=== PATIENT | female | born 1975 | race Caucasian/White ===

== ENCOUNTER 2018-05-31 08:26 | Inpatient (IN) | payer OTHER, MEDICAID ==
[~2018-05-31] VITALS: Ht 149.9 cm; Wt 112.5 kg
[2018-05-31 08:30] VITALS: Ht 149.9 cm; Wt 112.5 kg
[2018-05-31] MEDS ORDERED: VITAMIN D32000 I2 PO (08:39)
[2018-05-31] MEDS ORDERED: ENSKYCE1 TAB PO (08:39)
[2018-05-31] MEDS ORDERED: SYNTHROID0.125 MG PO (08:39)
[2018-05-31] MEDS ORDERED: MULTIVITAMIN1 SGL PO (08:40)
[2018-05-31] MEDS ORDERED: FISH OIL1000 MG PO (08:40)
[2018-05-31] MEDS ORDERED: TYLENOL325 M1 PO (08:43)
[2018-05-31] MEDS ORDERED: IMODIUM A-D2 M3 PO (08:44)
[2018-05-31] MEDS ORDERED: MP PO (08:44)
[2018-05-31] MEDS ORDERED: MOM PO (08:45)
[2018-05-31] MEDS ORDERED: ALBUTEROL SULFAT3 ML HHN (08:47)
[2018-05-31 08:58] LABS: BASOPHIL % 0.8 % (0-2); PLATELET COUNT 230 x10^3mcL (130-400)
[2018-05-31 09:24] LABS: CALCIUM 8.3 mg/dL (8.5-10.1); CARBON DIOXIDE 29.8 mmol/L (21-32); CHLORIDE SERUM 104 mmol/L (98-107); CREATININE SERUM 0.8 mg/dL (0.6-1.0); GFR1 > 60 mL/min; GLUCOSE SERUM 116 mg/dL (74-106); POTASSIUM SERUM 3.9 mmol/L (3.5-5.1); SODIUM SERUM 140 mmol/L (136-145)
[2018-05-31 09:25] LABS: CK-MB 0.9 ng/mL (0-3.6)
[2018-05-31 09:26] LABS: ALKALINE PHOSPHATASE 108 U/L (46-116); ALT/SGPT 29 U/L (14-59); AST/SGOT 17 U/L (15-37); BILIRUBIN TOTAL 0.3 mg/dL (0.20-1.00); C REACTIVE PROTEIN 4.7 mg/dL (<=0.9); TOTAL PROTEIN, SERUM 7.9 g/dL (6.4-8.2)
[2018-05-31 09:27] LABS: ALBUMIN 2.6 g/dL (3.4-5.0)
[2018-05-31 09:28] LABS: FREE T4 1.12 ng/dL (0.76-1.46); FREE THYROXINE INDEX 3.7 ug/dL (1.4-4.5); T4(THYROXINE) 11.6 ug/dL (4.7-13.3)
[2018-05-31 10:25] LABS: T3 TOTAL 1.15 ng/mL
[2018-05-31 11:09] LABS: ERYTHROCYTE SED RATE 70 mm/hr (0-20)
[2018-05-31 11:47] LABS: CHOLESTEROL/HDL RATIO 3.5; MAGNESIUM 1.8 mg/dL (1.8-2.4); PHOSPHOROUS 3.8 mg/dL (2.5-4.9)
[2018-05-31 13:15] LABS: UA SPECIFIC GRAVITY >=1.030 (1.005-1.035); microscopic required? YES; urine erythrocyte NEGATIVE (NEGATIVE)
[2018-05-31 15:12] VITALS: BP 117/60
[2018-05-31 16:19] VITALS: BP 125/60
[2018-05-31 16:23] VITALS: BP 125/60
[2018-05-31 19:30] VITALS: BP 123/74
[2018-05-31 23:09] VITALS: BP 103/57
[2018-06-01 03:10] VITALS: BP 100/43
[2018-06-01 05:03] LABS: BASOPHIL % 0.7 % (0-2); PLATELET COUNT 209 x10^3mcL (130-400); RED CELL DISTRIBUTION WIDTH 15.5 % (11.5-14.5)
[2018-06-01 05:19] LABS: CALCIUM 8.4 mg/dL (8.5-10.1); CARBON DIOXIDE 29.4 mmol/L (21-32); CHLORIDE SERUM 105 mmol/L (98-107); CREATININE SERUM 0.8 mg/dL (0.6-1.0); GFR1 > 60 mL/min; GLUCOSE SERUM 163 mg/dL (74-106); PHOSPHOROUS 2.7 mg/dL (2.5-4.9); POTASSIUM SERUM 4.2 mmol/L (3.5-5.1); SODIUM SERUM 141 mmol/L (136-145)
[2018-06-01 22:00] VITALS: BP 101/54
[2018-06-02 05:57] LABS: PLATELET COUNT 209 x10^3mcL (130-400)
[2018-06-02 05:58] VITALS: BP 122/71
[2018-06-02 06:35] LABS: RED CELL DISTRIBUTION WIDTH 15.9 % (11.5-14.5)
[2018-06-02 06:39] LABS: CALCIUM 8.8 mg/dL (8.5-10.1); CARBON DIOXIDE 30.9 mmol/L (21-32); CHLORIDE SERUM 104 mmol/L (98-107); CREATININE SERUM 0.8 mg/dL (0.6-1.0); GFR1 > 60 mL/min; GLUCOSE SERUM 136 mg/dL (74-106); MAGNESIUM 2.2 mg/dL (1.8-2.4); PHOSPHOROUS 3.4 mg/dL (2.5-4.9); POTASSIUM SERUM 4.7 mmol/L (3.5-5.1); SODIUM SERUM 141 mmol/L (136-145)
[2018-06-02 08:49] VITALS: BP 96/60
[2018-06-02 12:31] VITALS: BP 92/42
[2018-06-02 13:12] LABS: ATYPICAL LYMPH 2 %; BAND NEUTROPHIL 4 % (0-10); BASOPHIL 0 % (0-2); MONOCYTE 2 % (0-7); SEGMENTED NEUTROPHILS 91 % (37-75)
[2018-06-02 13:13] LABS: PLATELET MORPHOLOGY PLATELETS DECREASED; rbc morphology (normal/abnorm) ABNORMAL (NORMAL)
[2018-06-02 18:07] VITALS: BP 124/67
[2018-06-02 19:48] VITALS: BP 126/61
[2018-06-03 05:26] VITALS: BP 101/47
[2018-06-03 07:26] LABS: BASOPHIL % 0.1 % (0-2); PLATELET COUNT 204 x10^3mcL (130-400)
[2018-06-03 07:49] LABS: CALCIUM 8.8 mg/dL (8.5-10.1); CARBON DIOXIDE 28.5 mmol/L (21-32); CHLORIDE SERUM 100 mmol/L (98-107); CREATININE SERUM 0.8 mg/dL (0.6-1.0); GFR1 > 60 mL/min; GLUCOSE SERUM 128 mg/dL (74-106); MAGNESIUM 2.1 mg/dL (1.8-2.4); PHOSPHOROUS 4.5 mg/dL (2.5-4.9); POTASSIUM SERUM 4.2 mmol/L (3.5-5.1); SODIUM SERUM 136 mmol/L (136-145)
[2018-06-03 08:30] LABS: RED CELL DISTRIBUTION WIDTH 15.8 % (11.5-14.5)
[2018-06-03 10:01] VITALS: BP 106/44
[2018-06-03 12:48] VITALS: BP 106/55
[2018-06-03 18:10] VITALS: BP 104/58
[2018-06-03 20:57] VITALS: BP 116/57
[2018-06-04 06:03] VITALS: BP 107/57
[2018-06-04 06:42] LABS: CALCIUM 8.8 mg/dL (8.5-10.1); CARBON DIOXIDE 32.2 mmol/L (21-32); CHLORIDE SERUM 101 mmol/L (98-107); CREATININE SERUM 0.9 mg/dL (0.6-1.0); GFR1 > 60 mL/min; GLUCOSE SERUM 126 mg/dL (74-106); MAGNESIUM 2.2 mg/dL (1.8-2.4); PHOSPHOROUS 4.7 mg/dL (2.5-4.9); POTASSIUM SERUM 4.3 mmol/L (3.5-5.1); SODIUM SERUM 138 mmol/L (136-145)
[2018-06-04 06:50] LABS: BASOPHIL % 0.2 % (0-2); PLATELET COUNT 213 x10^3mcL (130-400)
[2018-06-04 07:02] LABS: RED CELL DISTRIBUTION WIDTH 15.7 % (11.5-14.5)
[2018-06-04 08:57] VITALS: BP 128/62
[2018-06-04 13:33] VITALS: BP 112/50
[2018-06-04 16:27] VITALS: BP 108/56
[2018-06-04 21:04] VITALS: BP 95/59
[2018-06-05 05:56] VITALS: BP 106/48
[2018-06-05 06:28] LABS: PLATELET COUNT 235 x10^3mcL (130-400)
[2018-06-05 06:41] LABS: RED CELL DISTRIBUTION WIDTH 16.1 % (11.5-14.5)
[2018-06-05 06:45] LABS: CALCIUM 8.7 mg/dL (8.5-10.1); CARBON DIOXIDE 29.6 mmol/L (21-32); CHLORIDE SERUM 99 mmol/L (98-107); GFR1 > 60 mL/min; GLUCOSE SERUM 135 mg/dL (74-106); POTASSIUM SERUM 4.3 mmol/L (3.5-5.1); SODIUM SERUM 136 mmol/L (136-145)
[2018-06-05 10:05] VITALS: BP 120/48
[2018-06-05 12:01] LABS: ATYPICAL LYMPH 1 %; BAND NEUTROPHIL 0 % (0-10); BASOPHIL 0 % (0-2); MONOCYTE 3 % (0-7); PLATELET MORPHOLOGY PLATELETS DECREASED; SEGMENTED NEUTROPHILS 91 % (37-75)
[2018-06-05 12:02] LABS: rbc morphology (normal/abnorm) ABNORMAL (NORMAL)
[2018-06-05] MEDS ORDERED: PREDNISONE20 MG PO (14:36)
[2018-06-05] MEDS ORDERED: LEVAQUIN750 MG PO (14:36)
[2018-06-05 16:32] VITALS: BP 106/53
[2018-06-05 20:50] VITALS: BP 97/51
[2018-06-06 06:10] VITALS: BP 93/41
[2018-06-06 06:23] LABS: CALCIUM 8.5 mg/dL (8.5-10.1); CARBON DIOXIDE 31.4 mmol/L (21-32); CHLORIDE SERUM 105 mmol/L (98-107); CREATININE SERUM 0.9 mg/dL (0.6-1.0); GFR1 > 60 mL/min; GLUCOSE SERUM 94 mg/dL (74-106); MAGNESIUM 2.3 mg/dL (1.8-2.4); PHOSPHOROUS 4.2 mg/dL (2.5-4.9); POTASSIUM SERUM 3.9 mmol/L (3.5-5.1); SODIUM SERUM 143 mmol/L (136-145)
[2018-06-06 06:38] LABS: PLATELET COUNT 212 x10^3mcL (130-400)
[2018-06-06 06:43] LABS: RED CELL DISTRIBUTION WIDTH 16.5 % (11.5-14.5)
[2018-06-06 09:28] LABS: BAND NEUTROPHIL 1 % (0-10); BASOPHIL 0 % (0-2); MONOCYTE 2 % (0-7); SEGMENTED NEUTROPHILS 87 % (37-75)
[2018-06-06 09:29] LABS: PLATELET MORPHOLOGY PLATELETS DECREASED; rbc morphology (normal/abnorm) ABNORMAL (NORMAL)
[2018-06-06 09:40] VITALS: BP 105/54
[2018-06-06 11:00] VITALS: BP 105/54
[2018-06-06 14:05] LABS: PLATELET COUNT 231 x10^3mcL (130-400)
[2018-06-06 14:14] LABS: RED CELL DISTRIBUTION WIDTH 16.5 % (11.5-14.5)
[2018-06-06 14:42] LABS: ATYPICAL LYMPH 1 %; METAMYELOCTE 2 % (0-2); MONOCYTE 9 % (0-7); SEGMENTED NEUTROPHILS 82 % (37-75)
[2018-06-06 14:43] LABS: PLATELET MORPHOLOGY PLATELETS NORMAL; rbc morphology (normal/abnorm) NORMAL (NORMAL)
[2018-06-06 17:31] VITALS: BP 101/57
[2018-06-06 21:05] VITALS: BP 104/57
[2018-06-07 06:26] LABS: CALCIUM 7.9 mg/dL (8.5-10.1); CARBON DIOXIDE 28.6 mmol/L (21-32); CHLORIDE SERUM 102 mmol/L (98-107); CREATININE SERUM 0.8 mg/dL (0.6-1.0); GFR1 > 60 mL/min; GLUCOSE SERUM 88 mg/dL (74-106); POTASSIUM SERUM 3.9 mmol/L (3.5-5.1); SODIUM SERUM 138 mmol/L (136-145)
[2018-06-07 06:30] LABS: PLATELET COUNT 217 x10^3mcL (130-400)
[2018-06-07 10:04] VITALS: BP 97/51
[2018-06-07 10:07] LABS: BAND NEUTROPHIL 8 % (0-10); BASOPHIL 0 % (0-2); METAMYELOCTE 1 % (0-2); MONOCYTE 7 % (0-7); SEGMENTED NEUTROPHILS 72 % (37-75)
[2018-06-07 10:08] LABS: PLATELET MORPHOLOGY GIANT PLATELET SEEN; rbc morphology (normal/abnorm) NORMAL (NORMAL)
[2018-06-07 17:19] VITALS: BP 101/47
[2018-06-07 20:44] VITALS: BP 99/48
[2018-06-08 05:48] VITALS: BP 95/59
[2018-06-08 06:54] LABS: CALCIUM 8.1 mg/dL (8.5-10.1); CARBON DIOXIDE 28.7 mmol/L (21-32); CHLORIDE SERUM 103 mmol/L (98-107); CREATININE SERUM 0.8 mg/dL (0.6-1.0); GFR1 > 60 mL/min; GLUCOSE SERUM 85 mg/dL (74-106); POTASSIUM SERUM 3.9 mmol/L (3.5-5.1); SODIUM SERUM 139 mmol/L (136-145)
[2018-06-08 07:06] LABS: BASOPHIL % 0.2 % (0-2); PLATELET COUNT 214 x10^3mcL (130-400)
[2018-06-08 07:07] VITALS: BP 82/50
[2018-06-08 07:36] LABS: RED CELL DISTRIBUTION WIDTH 15.9 % (11.5-14.5)
[2018-06-08] MEDS ORDERED: PREDNISONE20 MG PO (10:14)
[2018-06-08] MEDS ORDERED: FLA500 PO (10:14)
[2018-06-08] MEDS ORDERED: PREDNISONE5 MG PO (10:14)
[2018-06-08] MEDS ORDERED: LEVAQUIN750 MG PO (10:14)
[2018-06-08 12:22] VITALS: BP 82/50
[2018-06-08] MEDS ORDERED: GOOD SENSE OMEP20 MG PO (12:33)
[2018-06-08] MEDS ORDERED: IPRATROPIUM BROM3 M2 HHN (14:38)
== END 2018-06-08 17:01 | DRG 193 ==
LOC: ED 08:26 → IC 11:02 → DU 11:02 → MU 11:02 → IC 14:51 → DU 06-01 19:25 → MU 06-05 11:46
PROVIDERS: Family Medicine; General Practice; Specialist; ADMIT Internal Medicine
DX: J18.9 Pneumonia, unspecified organism (principal); J96.21 Acute and chronic respiratory failure with hypoxia; N17.0 Acute kidney failure with tubular necrosis; E43 Unspecified severe protein-calorie malnutrition; Q89.3 Situs inversus; J44.1 Chronic obstructive pulmonary disease with (acute) exacerbation; E03.9 Hypothyroidism, unspecified; K43.9 Ventral hernia without obstruction or gangrene; G47.33 Obstructive sleep apnea (adult) (pediatric); Q90.9 Down syndrome, unspecified; Z99.81 Dependence on supplemental oxygen; Z68.39 Body mass index [BMI] 39.0-39.9, adult; Z77.29 Contact with and (suspected) exposure to other hazardous substances
CPT/HCPCS: 36600; 83880; 84439; 94150; 97110-GP; 97116-GP; 97530-GP; J0132; J1644; J1956; J2920; J2930; J3490; J7030; J7050; J7512; J7613; J7620; J7626; J7644; Q0092

== ENCOUNTER 2018-07-16 14:12 | Inpatient (IN) | payer OTHER, MEDICAID ==
[~2018-07-16] VITALS: Ht 149.9 cm; Wt 103.5 kg
[~2018-07-16 14:12] MED LIST: ALBUTEROL SULFAT3 ML HHN; ENSKYCE1 TAB PO; FISH OIL1000 MG PO; FLA500 PO; GOOD SENSE OMEP20 MG PO; IMODIUM A-D2 M3 PO; IPRATROPIUM BROM3 M2 HHN; LEVAQUIN750 MG PO; MOM PO; MP PO; MULTIVITAMIN1 SGL PO; PREDNISONE20 MG PO; PREDNISONE5 MG PO; SYNTHROID0.125 MG PO; TYLENOL325 M1 PO; VITAMIN D32000 I2 PO
[2018-07-16 15:11] LABS: UA SPECIFIC GRAVITY >=1.030 (1.005-1.035); microscopic required? YES; urine erythrocyte 3+ (NEGATIVE)
[2018-07-16 15:12] LABS: BASOPHIL % 1.3 % (0-2); PLATELET COUNT 213 x10^3mcL (130-400)
[2018-07-16 15:24] LABS: RED CELL DISTRIBUTION WIDTH 16.3 % (11.5-14.5)
[2018-07-16 15:29] LABS: CALCIUM 8.8 mg/dL (8.5-10.1); CARBON DIOXIDE 28.3 mmol/L (21-32); CHLORIDE SERUM 103 mmol/L (98-107); CREATININE SERUM 0.9 mg/dL (0.6-1.0); GFR1 > 60 mL/min; GLUCOSE SERUM 123 mg/dL (74-106); POTASSIUM SERUM 3.4 mmol/L (3.5-5.1); SODIUM SERUM 140 mmol/L (136-145)
[2018-07-16 15:33] LABS: ALKALINE PHOSPHATASE 79 U/L (46-116); ALT/SGPT 20 U/L (14-59); AST/SGOT 12 U/L (15-37); BILIRUBIN TOTAL 0.3 mg/dL (0.20-1.00); LIPASE 84 IU/L (73-393); TOTAL PROTEIN, SERUM 7.4 g/dL (6.4-8.2)
[2018-07-16 15:37] LABS: ALBUMIN 2.4 g/dL (3.4-5.0)
[2018-07-16 16:19] LABS: MAGNESIUM 1.7 mg/dL (1.8-2.4); PHOSPHOROUS 3.2 mg/dL (2.5-4.9)
[2018-07-16 16:30] LABS: FREE T4 1.35 ng/dL (0.76-1.46); FREE THYROXINE INDEX 3.8 ug/dL (1.4-4.5); T3 TOTAL 0.94 ng/mL; T4(THYROXINE) 10.4 ug/dL (4.7-13.3)
[2018-07-16 17:38] VITALS: BP 105/53
[2018-07-16 17:40] VITALS: BP 105/53
[2018-07-16 19:16] LABS: AMPHETAMINE QUAL UR NONE DETECTED (See below)
[2018-07-16 19:38] VITALS: BP 107/52
[2018-07-17 06:05] VITALS: BP 96/45
[2018-07-17 06:42] LABS: BASOPHIL % 0.1 % (0-2); PLATELET COUNT 207 x10^3mcL (130-400)
[2018-07-17 06:48] LABS: CALCIUM 8.5 mg/dL (8.5-10.1); CHLORIDE SERUM 107 mmol/L (98-107); CREATININE SERUM 0.7 mg/dL (0.6-1.0); GFR1 > 60 mL/min; GLUCOSE SERUM 173 mg/dL (74-106); MAGNESIUM 1.7 mg/dL (1.8-2.4); PHOSPHOROUS 2.6 mg/dL (2.5-4.9); POTASSIUM SERUM 3.9 mmol/L (3.5-5.1); SODIUM SERUM 143 mmol/L (136-145)
[2018-07-17 06:56] LABS: RED CELL DISTRIBUTION WIDTH 15.8 % (11.5-14.5)
[2018-07-17 08:38] VITALS: BP 95/47
[2018-07-17 17:33] VITALS: BP 106/46
[2018-07-17 20:55] VITALS: BP 110/90
[2018-07-18 06:24] LABS: CALCIUM 8.5 mg/dL (8.5-10.1); CARBON DIOXIDE 26.9 mmol/L (21-32); CHLORIDE SERUM 110 mmol/L (98-107); CREATININE SERUM 0.9 mg/dL (0.6-1.0); GFR1 > 60 mL/min; GLUCOSE SERUM 155 mg/dL (74-106); MAGNESIUM 2.1 mg/dL (1.8-2.4); PHOSPHOROUS 3.3 mg/dL (2.5-4.9); POTASSIUM SERUM 3.9 mmol/L (3.5-5.1); SODIUM SERUM 144 mmol/L (136-145)
[2018-07-18 06:26] VITALS: BP 106/48
[2018-07-18 06:33] LABS: PLATELET COUNT 217 x10^3mcL (130-400)
[2018-07-18 06:39] LABS: BASOPHIL % 0 % (0-2)
[2018-07-18 09:30] VITALS: BP 95/41
[2018-07-18 11:13] VITALS: Ht 149.9 cm; Wt 103.5 kg
[2018-07-18 16:00] VITALS: BP 103/77
[2018-07-18 21:09] VITALS: BP 114/71
[2018-07-19 06:04] VITALS: BP 105/54
[2018-07-19 06:37] LABS: BASOPHIL % 0.2 % (0-2); PLATELET COUNT 196 x10^3mcL (130-400)
[2018-07-19 06:38] LABS: CALCIUM 8.3 mg/dL (8.5-10.1); CARBON DIOXIDE 25.9 mmol/L (21-32); CHLORIDE SERUM 108 mmol/L (98-107); CREATININE SERUM 0.8 mg/dL (0.6-1.0); GFR1 > 60 mL/min; GLUCOSE SERUM 137 mg/dL (74-106); MAGNESIUM 2.2 mg/dL (1.8-2.4); PHOSPHOROUS 3.1 mg/dL (2.5-4.9); POTASSIUM SERUM 4.1 mmol/L (3.5-5.1); SODIUM SERUM 143 mmol/L (136-145)
[2018-07-19 06:44] LABS: RED CELL DISTRIBUTION WIDTH 16.1 % (11.5-14.5)
[2018-07-19 15:42] VITALS: BP 105/54
[2018-07-19 17:36] VITALS: BP 136/68
[2018-07-19 21:36] VITALS: BP 128/75
[2018-07-20 04:55] VITALS: BP 117/68
[2018-07-20 06:07] LABS: PLATELET COUNT 197 x10^3mcL (130-400)
[2018-07-20 06:17] LABS: CALCIUM 8.5 mg/dL (8.5-10.1); CARBON DIOXIDE 30.6 mmol/L (21-32); CHLORIDE SERUM 103 mmol/L (98-107); CREATININE SERUM 0.8 mg/dL (0.6-1.0); GFR1 > 60 mL/min; GLUCOSE SERUM 141 mg/dL (74-106); PHOSPHOROUS 4.1 mg/dL (2.5-4.9); POTASSIUM SERUM 4.4 mmol/L (3.5-5.1); SODIUM SERUM 138 mmol/L (136-145)
[2018-07-20 06:30] LABS: RED CELL DISTRIBUTION WIDTH 15.6 % (11.5-14.5)
[2018-07-20 09:00] VITALS: BP 119/60
[2018-07-20 09:24] LABS: BAND NEUTROPHIL 9 % (0-10); BASOPHIL 0 % (0-2); METAMYELOCTE 1 % (0-2); MONOCYTE 3 % (0-7); PLATELET MORPHOLOGY PLATELETS NORMAL; SEGMENTED NEUTROPHILS 75 % (37-75); rbc morphology (normal/abnorm) NORMAL (NORMAL)
[2018-07-20 13:17] VITALS: BP 122/65
[2018-07-20 16:19] VITALS: BP 126/57
[2018-07-20 19:35] VITALS: BP 122/71
[2018-07-21 06:00] VITALS: BP 96/47
[2018-07-21 07:46] LABS: PLATELET COUNT 225 x10^3mcL (130-400)
[2018-07-21 08:11] LABS: RED CELL DISTRIBUTION WIDTH 15.9 % (11.5-14.5)
[2018-07-21 09:13] LABS: CARBON DIOXIDE 34.3 mmol/L (21-32); CHLORIDE SERUM 97 mmol/L (98-107); CREATININE SERUM 0.9 mg/dL (0.6-1.0); GFR1 > 60 mL/min; GLUCOSE SERUM 123 mg/dL (74-106); MAGNESIUM 2.2 mg/dL (1.8-2.4); PHOSPHOROUS 4.7 mg/dL (2.5-4.9); POTASSIUM SERUM 4.3 mmol/L (3.5-5.1); SODIUM SERUM 138 mmol/L (136-145)
[2018-07-21 10:58] VITALS: BP 108/60
[2018-07-21 14:34] LABS: BAND NEUTROPHIL 11 % (0-10); MONOCYTE 9 % (0-7); SEGMENTED NEUTROPHILS 69 % (37-75); rbc morphology (normal/abnorm) NORMAL (NORMAL)
[2018-07-21 14:35] LABS: PLATELET MORPHOLOGY LARGE PLATELET SEEN
[2018-07-21 17:06] VITALS: BP 101/66
[2018-07-21 18:04] VITALS: BP 101/66
[2018-07-21 19:15] VITALS: BP 102/41
[2018-07-21 20:45] VITALS: BP 112/61
[2018-07-22 05:29] VITALS: BP 106/50
[2018-07-22 06:19] LABS: PLATELET COUNT 222 x10^3mcL (130-400)
[2018-07-22 06:37] LABS: CALCIUM 8.9 mg/dL (8.5-10.1); CARBON DIOXIDE 30.9 mmol/L (21-32); CHLORIDE SERUM 98 mmol/L (98-107); CREATININE SERUM 0.9 mg/dL (0.6-1.0); GFR1 > 60 mL/min; GLUCOSE SERUM 123 mg/dL (74-106); MAGNESIUM 2.2 mg/dL (1.8-2.4); PHOSPHOROUS 4.1 mg/dL (2.5-4.9); POTASSIUM SERUM 4.3 mmol/L (3.5-5.1); SODIUM SERUM 137 mmol/L (136-145)
[2018-07-22 07:20] LABS: RED CELL DISTRIBUTION WIDTH 16.4 % (11.5-14.5)
[2018-07-22 08:55] VITALS: BP 103/57
[2018-07-22 10:56] LABS: BAND NEUTROPHIL 1 % (0-10); BASOPHIL 0 % (0-2); MONOCYTE 3 % (0-7); SEGMENTED NEUTROPHILS 82 % (37-75)
[2018-07-22 10:57] LABS: rbc morphology (normal/abnorm) NORMAL (NORMAL)
[2018-07-22 10:58] LABS: PLATELET MORPHOLOGY LARGE PLATELET SEEN
[2018-07-22 16:24] VITALS: BP 97/63
[2018-07-22 19:15] VITALS: BP 94/53
[2018-07-23 06:01] VITALS: BP 100/59
[2018-07-23 06:19] LABS: PLATELET COUNT 224 x10^3mcL (130-400)
[2018-07-23 07:03] LABS: CALCIUM 9.1 mg/dL (8.5-10.1); CARBON DIOXIDE 28.3 mmol/L (21-32); CHLORIDE SERUM 99 mmol/L (98-107); CREATININE SERUM 0.8 mg/dL (0.6-1.0); GFR1 > 60 mL/min; GLUCOSE SERUM 118 mg/dL (74-106); POTASSIUM SERUM 4.5 mmol/L (3.5-5.1); SODIUM SERUM 137 mmol/L (136-145)
[2018-07-23 07:24] LABS: RED CELL DISTRIBUTION WIDTH 16.3 % (11.5-14.5)
[2018-07-23 09:19] VITALS: BP 108/55
[2018-07-23 11:21] LABS: ATYPICAL LYMPH 2 %; BAND NEUTROPHIL 6 % (0-10); BASOPHIL 0 % (0-2); METAMYELOCTE 1 % (0-2); MONOCYTE 5 % (0-7); MYELOCYTE 2 % (0-2); SEGMENTED NEUTROPHILS 77 % (37-75)
[2018-07-23 11:22] LABS: PLATELET MORPHOLOGY GIANT PLATELET SEEN; rbc morphology (normal/abnorm) NORMAL (NORMAL)
[2018-07-23 12:36] VITALS: BP 108/73
[2018-07-23] MEDS ORDERED: VANCOMYCIN1 GM/200 M IV (13:05)
[2018-07-23] MEDS ORDERED: SOL40I IV (13:06)
[2018-07-23] MEDS ORDERED: IPRATROPIUM BROM3 M2 INH (13:07)
[2018-07-23] MEDS ORDERED: MUC20 HHN (13:07)
[2018-07-23] MEDS ORDERED: BUDESONIDE0.5 MG/2 M IH (13:08)
[2018-07-23] MEDS ORDERED: MUCINEX600 MG PO (13:08)
[2018-07-23] MEDS ORDERED: COL100 PO (13:08)
[2018-07-23] MEDS ORDERED: ARTOS OU (13:08)
[2018-07-23] MEDS ORDERED: HEP5I SC (13:08)
[2018-07-23] MEDS ORDERED: ZOFI IV (13:09)
[2018-07-23] MEDS ORDERED: PRI20 PO (13:09)
[2018-07-23 18:01] VITALS: BP 118/61
[2018-07-23 18:37] VITALS: BP 118/61
== END 2018-07-23 20:01 | disposition home or self-care (01) | DRG 177 ==
LOC: ED 14:12 → DU 15:51
PROVIDERS: Emergency Medicine; Internal Medicine; ADMIT Family Medicine
DX: J69.0 Pneumonitis due to inhalation of food and vomit (principal); J96.22 Acute and chronic respiratory failure with hypercapnia; N17.0 Acute kidney failure with tubular necrosis; E43 Unspecified severe protein-calorie malnutrition; Q89.3 Situs inversus; J44.1 Chronic obstructive pulmonary disease with (acute) exacerbation; E66.2 Morbid (severe) obesity with alveolar hypoventilation; Z68.43 Body mass index [BMI] 50.0-59.9, adult; J15.212 Pneumonia due to Methicillin resistant Staphylococcus aureus; K21.9 Gastro-esophageal reflux disease without esophagitis; J47.9 Bronchiectasis, uncomplicated; E87.6 Hypokalemia; E83.42 Hypomagnesemia; R73.03 Prediabetes; E03.9 Hypothyroidism, unspecified; Q90.9 Down syndrome, unspecified; Z99.81 Dependence on supplemental oxygen
CPT/HCPCS: 36600; 82962; 83880; 84439; 87804; 92526-GN; 92610; 94150; 97110-GP; 97116-GP; 97530-GP; J0132; J1644; J1956; J2920; J2930; J3370; J3490; J7030; J7620; J7626; Q0092

== ENCOUNTER 2018-08-31 12:09 | Inpatient (IN) | payer OTHER, MEDICAID ==
[~2018-08-31] VITALS: Ht 149.9 cm; Wt 112.1 kg
[~2018-08-31 12:09] MED LIST changes: +ARTOS OU; +BUDESONIDE0.5 MG/2 M IH; +COL100 PO; +HEP5I SC; +IPRATROPIUM BROM3 M2 INH; +MUC20 HHN; +MUCINEX600 MG PO; +PRI20 PO; +SOL40I IV; +VANCOMYCIN1 GM/200 M IV; +ZOFI IV
[2018-08-31 12:49] LABS: BASOPHIL % 1.9 % (0-2); PLATELET COUNT 185 x10^3mcL (130-400)
[2018-08-31 13:12] LABS: CALCIUM 9.1 mg/dL (8.5-10.1); CARBON DIOXIDE 32.5 mmol/L (21-32); CHLORIDE SERUM 106 mmol/L (98-107); CREATININE SERUM 0.8 mg/dL (0.6-1.0); GFR1 > 60 mL/min; GLUCOSE SERUM 115 mg/dL (74-106); POTASSIUM SERUM 4.2 mmol/L (3.5-5.1); SODIUM SERUM 143 mmol/L (136-145)
[2018-08-31 13:16] LABS: ALKALINE PHOSPHATASE 79 U/L (46-116); ALT/SGPT 33 U/L (14-59); AST/SGOT 15 U/L (15-37); BILIRUBIN TOTAL 0.3 mg/dL (0.20-1.00); TOTAL PROTEIN, SERUM 6.5 g/dL (6.4-8.2)
[2018-08-31 13:21] LABS: ALBUMIN 2.3 g/dL (3.4-5.0)
[2018-08-31 14:34] LABS: FREE T4 1.26 ng/dL (0.76-1.46); FREE THYROXINE INDEX 3.9 ug/dL (1.4-4.5); T4(THYROXINE) 12.1 ug/dL (4.7-13.3)
[2018-08-31 14:36] LABS: T3 TOTAL 1.65 ng/mL
[2018-08-31 14:54] LABS: MAGNESIUM 1.9 mg/dL (1.8-2.4)
[2018-08-31 15:31] VITALS: BP 107/63
[2018-08-31 15:47] VITALS: BP 107/63
[2018-08-31 17:36] VITALS: BP 106/62
[2018-08-31 20:50] VITALS: BP 106/58
[2018-08-31 23:21] VITALS: Ht 149.9 cm; Wt 112.1 kg
[2018-09-01 05:50] VITALS: BP 95/46
[2018-09-01 06:34] LABS: CALCIUM 9.7 mg/dL (8.5-10.1); CARBON DIOXIDE 27.2 mmol/L (21-32); CHLORIDE SERUM 107 mmol/L (98-107); CREATININE SERUM 0.7 mg/dL (0.6-1.0); GFR1 > 60 mL/min; GLUCOSE SERUM 166 mg/dL (74-106); POTASSIUM SERUM 4.2 mmol/L (3.5-5.1); SODIUM SERUM 144 mmol/L (136-145)
[2018-09-01 07:42] LABS: BASOPHIL % 0.5 % (0-2); PLATELET COUNT 179 x10^3mcL (130-400); RED CELL DISTRIBUTION WIDTH 16.8 % (11.5-14.5)
[2018-09-01 10:06] VITALS: BP 100/56
[2018-09-01 13:25] VITALS: BP 110/51
[2018-09-01 17:26] VITALS: BP 96/57
[2018-09-01 17:26] LABS: microscopic required? NO
[2018-09-01 17:34] LABS: urine erythrocyte NEGATIVE (NEGATIVE)
[2018-09-01 20:43] VITALS: BP 104/47
[2018-09-02 06:14] VITALS: BP 99/47
[2018-09-02 06:35] LABS: CALCIUM 9.1 mg/dL (8.5-10.1); CARBON DIOXIDE 32.8 mmol/L (21-32); CHLORIDE SERUM 104 mmol/L (98-107); CREATININE SERUM 0.7 mg/dL (0.6-1.0); GFR1 > 60 mL/min; GLUCOSE SERUM 134 mg/dL (74-106); MAGNESIUM 1.9 mg/dL (1.8-2.4); PHOSPHOROUS 4.2 mg/dL (2.5-4.9); POTASSIUM SERUM 4.7 mmol/L (3.5-5.1); SODIUM SERUM 143 mmol/L (136-145)
[2018-09-02 06:50] LABS: BASOPHIL % 0.2 % (0-2); PLATELET COUNT 202 x10^3mcL (130-400)
[2018-09-02 07:47] LABS: RED CELL DISTRIBUTION WIDTH 16.6 % (11.5-14.5)
[2018-09-02 08:33] VITALS: BP 110/59
[2018-09-02 13:09] VITALS: BP 109/50
[2018-09-02 16:13] VITALS: BP 103/58
[2018-09-02 20:58] VITALS: BP 104/61
[2018-09-03 05:38] VITALS: BP 109/55
[2018-09-03 09:18] VITALS: BP 97/52
[2018-09-03 12:55] VITALS: BP 96/55
[2018-09-03 16:43] VITALS: BP 109/79
[2018-09-03 20:59] VITALS: BP 100/64
[2018-09-04 06:16] VITALS: BP 103/63
[2018-09-04 06:28] LABS: CALCIUM 9.3 mg/dL (8.5-10.1); CARBON DIOXIDE 30.1 mmol/L (21-32); CHLORIDE SERUM 103 mmol/L (98-107); CREATININE SERUM 0.9 mg/dL (0.6-1.0); GFR1 > 60 mL/min; GLUCOSE SERUM 86 mg/dL (74-106); MAGNESIUM 2.3 mg/dL (1.8-2.4); PHOSPHOROUS 4.2 mg/dL (2.5-4.9); POTASSIUM SERUM 4.1 mmol/L (3.5-5.1); SODIUM SERUM 143 mmol/L (136-145)
[2018-09-04 06:49] LABS: PLATELET COUNT 230 x10^3mcL (130-400)
[2018-09-04 07:44] LABS: RED CELL DISTRIBUTION WIDTH 17.2 % (11.5-14.5)
[2018-09-04 09:55] VITALS: BP 88/45
[2018-09-04 10:00] VITALS: BP 99/53
[2018-09-04] MEDS ORDERED: LEVAQUIN750 MG PO (10:35)
[2018-09-04 13:22] VITALS: BP 109/79
[2018-09-04 14:29] VITALS: BP 109/79
== END 2018-09-04 17:54 | disposition home health service (06) | DRG 193 ==
LOC: ED 12:09 → DU 13:51
PROVIDERS: Emergency Medicine; ADMIT Internal Medicine
DX: J18.9 Pneumonia, unspecified organism (principal); E43 Unspecified severe protein-calorie malnutrition; J96.21 Acute and chronic respiratory failure with hypoxia; J96.22 Acute and chronic respiratory failure with hypercapnia; J44.0 Chronic obstructive pulmonary disease with (acute) lower respiratory infection; Z68.42 Body mass index [BMI] 45.0-49.9, adult; E11.9 Type 2 diabetes mellitus without complications; K21.9 Gastro-esophageal reflux disease without esophagitis; E66.9 Obesity, unspecified; Z88.0 Allergy status to penicillin; Z88.8 Allergy status to other drugs, medicaments and biological substances; Z88.2 Allergy status to sulfonamides; Z88.1 Allergy status to other antibiotic agents; Z91.040 Latex allergy status; Z91.048 Other nonmedicinal substance allergy status; Z79.899 Other long term (current) drug therapy
CPT/HCPCS: 83880; 84439; 94150; G0378; J0132; J1644; J1940; J1956; J2920; J2930; J3370; J3490; J7030; J7613; J7620; J7644; Q0092

== ENCOUNTER 2018-09-22 07:32 | Inpatient (IN) | payer OTHER, MEDICAID ==
[~2018-09-22] VITALS: Ht 149.9 cm; Wt 110.0 kg
--- NOTE | 2018-09-22 07:45 | NUR ---
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 PATIENT AAOX4, PERRLA, GCS 15 AND PATIENT ACTING NORMALLY AND ANSWERING ALL QUESTIONS. RHONCHI AUSCULTATED BILATERALLY. BREATHING IS LABORED, BILATERAL CHEST RISE NOTED. DR. SOUTH AT BEDSIDE PERFORMING MSE
--- NOTE | 2018-09-22 08:01 | NUR ---
RESPIRATORY AT BEDSIDE
--- NOTE | 2018-09-22 08:01 | NUR ---
LAB AT BEDSIDE
[2018-09-22 08:18] LABS: BASOPHIL % 0.6 % (0-2); PLATELET COUNT 208 x10^3mcL (130-400)
[2018-09-22 08:19] LABS: RED CELL DISTRIBUTION WIDTH 16.7 % (11.5-14.5)
[2018-09-22 08:24] LABS: CARBON DIOXIDE 27.7 mmol/L (21-32); CHLORIDE SERUM 106 mmol/L (98-107); CREATININE SERUM 0.8 mg/dL (0.6-1.0); GFR1 > 60 mL/min; GLUCOSE SERUM 110 mg/dL (74-106); SODIUM SERUM 142 mmol/L (136-145)
[2018-09-22 08:37] LABS: ALKALINE PHOSPHATASE 58 U/L (46-116); ALT/SGPT 25 U/L (14-59); AST/SGOT 16 U/L (15-37); BILIRUBIN TOTAL 0.2 mg/dL (0.20-1.00); TOTAL PROTEIN, SERUM 6.6 g/dL (6.4-8.2)
[2018-09-22 08:41] LABS: ALBUMIN 2.5 g/dL (3.4-5.0)
--- NOTE | 2018-09-22 08:51 | NUR ---
RESPIRATORY AT BEDSIDE PERFORMING ABGS
[2018-09-22] MEDS ORDERED: MUCINEX600 MG PO (08:55)
[2018-09-22] MEDS ORDERED: ACETADOTE (08:56)
--- NOTE | 2018-09-22 08:59 | NUR ---
FIRST ABG GAVE ERRONEOUS RESULTS. NEW ABG REDRAWN AND ENTERED UNDER NEW ORDER.
--- NOTE | 2018-09-22 09:35 | NUR ---
PATIENT COUGHING AT BEDSIDE. CALLED RESPIRATORY TO ASSIST WITH ADDITIONAL BREATHING TREATMENT. PATIENT COMMUNICATES SHE IS IN NO PAIN
--- NOTE | 2018-09-22 10:01 | NUR ---
REPORT GIVEN TO RYNE MCKEON
[2018-09-22 10:08] LABS: UA SPECIFIC GRAVITY >=1.030 (1.005-1.035); microscopic required? YES; urine erythrocyte NEGATIVE (NEGATIVE)
[2018-09-22 10:38] LABS: MAGNESIUM 1.8 mg/dL (1.8-2.4); PHOSPHOROUS 4.9 mg/dL (2.5-4.9)
[2018-09-22 11:19] LABS: AMPHETAMINE QUAL UR NONE DETECTED (See below)
[2018-09-22 11:21] VITALS: BP 123/90
[2018-09-22 11:29] VITALS: BP 113/51
[2018-09-22 11:45] VITALS: Ht 149.9 cm; Wt 110.0 kg
[2018-09-22 11:56] VITALS: BP 123/90
--- NOTE | 2018-09-22 12:06 | NUR ---
AAO TIMES 4. HISTORY OF DOWNS SYNDROME, BUT IS AAO AND AN EXCELLENT HISTORIAN. HER MOTHER IS PRESENT AND SISTER IN LAW, BOTH SUPPORTIVE AND CARING. LUNGS DIMINISHED BILATERALLY WITH RHONCHI. O2 SAT ON 15 L SIMPLE MASK IS 90%. BS'S ACTIVE TIMES 4. OBESE. WITH LARGE PENDULOUS ABDOMEN, RIGHT SIDE LARGER THAN LEFT. PER FAMILY SHE HAS A VENTRAL HERNIA HISTORY ON HER RIGHT SIDE OF HER ABDOMEN. PERIPHERAL PULSES PALPABLE. NO EDEMA. COOPERAIVE. NO C/O PAIN.
--- NOTE | 2018-09-22 14:10 | NUR ---
PATIENT'S SPO2 93%. FIO2 TITRATED DOWN FROM 64% TO 58% (FROM 8LPM TO 7LPM ON OXIMIZER). WILL CONTINUE TO MONITOR
[2018-09-22 16:54] VITALS: BP 105/44
--- NOTE | 2018-09-22 18:48 | NUR ---
AAO TIMES 4. MOTHER PRESENT. TELE # 17 SR. NO C/O PAIN. O2 OXIMIZER 7L, O2 SAT 93%. USING BSC WITH ASSIST AND WALKER. DENIES DISCOMFORT. COOPERATIVE.
--- NOTE | 2018-09-22 19:30 | NUR ---
RECEIVED PT FROM DAY SHIFT RN. PT IS ALERT AND ORIENTED TO PERSON PLACE TIME AND SITUATION. ABLE TO FOLLOW COMMANDS AND ANSWER QUESTIONS APPROPRIATELY AND THOROUGHLY. HX: DOWN SYNDROME BUT COHERENT AND ABLE TO EXPLAIN HER SITUATION. PT DENIES ANY SHORTNESS OF BREATH. INTERMITTENT AT TIMES BUT TOLERABLE RIGHT NOW. PT CURRENTLY ON OXYMIZER 7L. SATURATION 92%. NO USE OF ACCESSORY MUSCLES OR LABORED BREATHING. PT RESTING UP IN BED WITH FAMILY AT THE BEDSIDE. PT REQUEST BIPAP AT NIGHT. WILL INFORM RT. PT DENIES CHEST PAIN. TELE#[address]. ABD DISTENDED PT STATES HERNIA DOES NOT HURT AT THIS TIME. 20G RH IV CLEAN DRY AND INTACT. SAFETY MEASURES ARE IN PLACE. BED IS IN THE LOWEST POSITION. CALL LIGHT IS WITHIN REACH. WILL CONTINUE TO MONITOR PT.
[2018-09-22 20:28] VITALS: BP 126/58
--- NOTE | 2018-09-22 20:34 | NUR ---
ASSISTED PT TO THE BEDSIDE COMMODE. PT HAS SOFT BOWEL MOVEMENT. DENIES DYSURIA OR PAIN WITH ELIMINATION.
--- NOTE | 2018-09-22 22:31 | NUR ---
PLACED PATIENT ONTO BIPAP TO SLEEP. PER MOM SETTINGS USED AT HOME: 19/01 RATE 14 MIRRORED FIO2 FROM OXYMIZER THAT WAS AT 52%. ORDER PUT IN TO TITRATE FIO2 NEEDED. PATIENT CONFIRMED COMFORT ON MASK.
--- NOTE | 2018-09-23 00:44 | NUR ---
PT RESTING IN BED WITH EYES CLOSED. BIPAP MACHINE ON. PT TOLERATING WELL. NO USE OF ACCESSORY MUSCLES OR LABORED BREATHING NOTED. BREATHING IS SYMMETRIC. CALL LIGHT IS WITHIN REACH. WILL MONITOR.
[2018-09-23 05:59] VITALS: BP 111/63
[2018-09-23 06:59] LABS: CALCIUM 8.4 mg/dL (8.5-10.1); CARBON DIOXIDE 23.8 mmol/L (21-32); CHLORIDE SERUM 110 mmol/L (98-107); CREATININE SERUM 0.6 mg/dL (0.6-1.0); GFR1 > 60 mL/min; GLUCOSE SERUM 142 mg/dL (74-106); MAGNESIUM 1.8 mg/dL (1.8-2.4); PHOSPHOROUS 3.4 mg/dL (2.5-4.9); POTASSIUM SERUM 4.1 mmol/L (3.5-5.1); SODIUM SERUM 145 mmol/L (136-145)
[2018-09-23 07:04] LABS: BASOPHIL % 0.3 % (0-2); PLATELET COUNT 185 x10^3mcL (130-400)
[2018-09-23 07:22] LABS: RED CELL DISTRIBUTION WIDTH 16.3 % (11.5-14.5)
--- NOTE | 2018-09-23 08:31 | NUR ---
AAO TIMES 4. TELE # 17 SR. LUNGS DIMINISHED BILATERALLY. O2 SAT ON 7 L OXIMIZER 95%. BS'S ACTIVE TIMES 4. SILVERMAN WITH SLIGHT GENERALIZED WEAKNES. OBESE, RIGHT SIDE OF ABDOMEN LARGER THAN LEFT. PERIPHERAL PULSES PALPABLE. NO EDEMA. COOPERATIVE.
[2018-09-23 09:39] VITALS: BP 112/49
[2018-09-23 13:41] VITALS: BP 98/56
[2018-09-23 16:58] VITALS: BP 109/62
--- NOTE | 2018-09-23 17:44 | NUR ---
AAO TIMES 4. TELE # 13 SR. VS'S STABLE. NO SOB. SHE IS COLORING IN HER COLORING BOOK. NO C/O PAIN. RIGHT HAND IV SITE CDI. COOPERATIVE. HER MOTHER WAS VISITING THIS AFTERNOON BUT LEFT, SHE IS SUPPORTIVE AND CARING.
--- NOTE | 2018-09-23 19:42 | NUR ---
SHIFT REASSESSMENT DONE.PATIENT ALERT AND ORIENTED.,DOWN SYNDROME BUT FUNCTIONAL.OXIMIZER AT 7 LITERS,ALSO BIPAP AT NIGHT.GEN WEAKNESS,ASSIST BSC.HAS WALKER,BASELINE AT HOME.FALL PRECAUTION.NS AT 100 CC/ HOUR.20 G R HAND.TELE 17 SR.SKIN INTACT.CALL LIGHT IN REACH.
[2018-09-23 20:43] VITALS: BP 111/59
--- NOTE | 2018-09-23 21:00 | NUR ---
PATIENT PM MED MUCINEX GIVEN,CUT INTO HALF BECAUSE PILL IS BIG.SWALLOWS WELL.FAMILY AT BEDSIDE,SUPPORTIVE OF CARE.
--- NOTE | 2018-09-23 21:38 | NUR ---
PLACED PATIENT ONTO BIPAP FOR THE NIGHT. SETTINGS: 19/01 RATE 14 FIO2 50%. PATIENT CONFIRMED COMFORT ON MASK. SPO2 94 HR 74. WILL CONTINUE TO MONITOR.
--- NOTE | 2018-09-23 22:21 | NUR ---
FAMILY GONE NOW FOR VISIT,ACCOUNTS RECEIVABLE COLLECTOR IS HERE.
--- NOTE | 2018-09-23 22:21 | NUR ---
EXTRA BLANKET/WARM GIVEN AND COVERED PATIENT.BIPAP INTACT NOW,TOLERATING WELL.
--- NOTE | 2018-09-24 01:00 | NUR ---
TOLERATING BIPAB.ALARMING AND CORRECTED.IVF NS AT 100 CC/ HOUR,ASSISTED TO RESTROOM,BSC.MODERATE ASSIST.
[2018-09-24 05:04] VITALS: BP 117/63
--- NOTE | 2018-09-24 05:22 | NUR ---
I AND O MEASURED.BIPAP STILL INTACT,MAY BE REMOVED BY 7 AM,PER RT ULISSES.IVF NS,INFUSING.
[2018-09-24 06:26] LABS: BASOPHIL % 0.5 % (0-2); PLATELET COUNT 177 x10^3mcL (130-400)
--- NOTE | 2018-09-24 06:27 | NUR ---
AM MED GIVEN,BIPAP STILL INTACT.WILL ENDORSE TO NEXT SHIFT.
[2018-09-24 06:49] LABS: CALCIUM 8.4 mg/dL (8.5-10.1); CARBON DIOXIDE 26.5 mmol/L (21-32); CHLORIDE SERUM 110 mmol/L (98-107); CREATININE SERUM 0.7 mg/dL (0.6-1.0); GFR1 > 60 mL/min; GLUCOSE SERUM 84 mg/dL (74-106); MAGNESIUM 1.8 mg/dL (1.8-2.4); PHOSPHOROUS 3.4 mg/dL (2.5-4.9); POTASSIUM SERUM 3.8 mmol/L (3.5-5.1); SODIUM SERUM 145 mmol/L (136-145)
[2018-09-24 07:20] LABS: RED CELL DISTRIBUTION WIDTH 16.7 % (11.5-14.5)
--- NOTE | 2018-09-24 07:30 | NUR ---
RECEIVED PT FROM DIRECTOR INDUSTRIAL NURSING RN. MAICOL. TELE#17. DENIES CHEST PAIN/PRESSURE. RESPIRATIONS EQUAL AND UNLABORED ON BIPAP. NO ACUTE RESP DISTRESS NOTED. PT EXPRESSED SHE WANTS TO REMAIN ON BIPAP. ENCOURAGED PT TO UCE CALL LIGHT WHEN WANTING TO BE PLACED ON OXYMIZER. IV TO RH PATENT AND INFUSING. NO REDNESS OR SWELLING NOTED. COVERED IN DICK WRAP. WILL CONTINUE TO MONITOR. CALL LIGHT IN REACH. BED IN LOWEST POSITION.
[2018-09-24 09:08] VITALS: BP 103/57
--- NOTE | 2018-09-24 09:46 | NUR ---
PT SITTING UP IN BED. NO ACUTE RESP DISTRESS NOTED ON 7L OXYMIZER. RESPIRATORY THERAPIST AT BEDSIDE. BREATHING TREATMENT PROVIDED. GIVEN PO MEDS. TOLERATED WELL. IV PATENT AND INFUSING. NO REDNESS OR SWELLING NOTED. WILL CONTINUE TO MONITOR. CALL LIGHT IN REACH. BED IN LOWEST POSITION.
--- NOTE | 2018-09-24 11:04 | NUR ---
SPOKE WITH SISTER KRYSTLE WILSON GIVEN UPDATED ON POC.
--- NOTE | 2018-09-24 11:19 | NUR ---
DR. URIAS AT BEDSIDE. DR. URIAS EXPLAINED TO PT AND FAMILY CURRENTLY POC IS HELPING AND WILL CONTINUE CURRENT POC.
[2018-09-24 12:14] VITALS: BP 102/40
--- NOTE | 2018-09-24 12:32 | NUR ---
PT SITTING UP IN BED. RECEIVING BREATHING TREATMENT. NO ACUTE RESP DISTRESS NOTED. MOM AT BEDSIDE. PT DENIES ANY PAIN AT THIS TIME. IV PATENT AND INFUSING TO RH. NO REDNESS OR SWELLING NOTED. WILL CONTINUE TO MONITOR. CALL LIGHT IN REACH. BED IN LOWEST POSITION.
--- NOTE | 2018-09-24 16:16 | NUR ---
PHYSICAL THERAPIST AT BEDSIDE. PT TOLERATED WELL ON OXYMIZER 5L. RESPIRATORY THERAPIST DAMEON CALLED FOR BREATHING TREATMENT.
--- NOTE | 2018-09-24 16:29 | NUR ---
FAMILY AT BEDSIDE. FAMILY ASKING WHY PT HAS NOT HAD CPT. SPOKE WITH DR. FAJARDO REGARDING CPT NEEDING TO BE ORDERED UNDER RESPIRATORY THERAPY. PER DR. FAJARDO WILL CHANGE ORDER.
--- NOTE | 2018-09-24 17:03 | NUR ---
PT SITTING UP IN BED. FAMILY AT BEDSIDE. NO ACUTE REP DISTRESS NOTED ON 5L OXYMIZER. IV PATENT AND INFUSING TO RH. NO REDNESS OR SWELLING NOTED. PT DENIES ANY PAIN AT THIS TIME. WILL CONTINUE TO MONITOR. CALL LIGHT IN REACH. BED IN LOWEST POSITION.
[2018-09-24 17:24] VITALS: BP 100/43
--- NOTE | 2018-09-24 19:25 | NUR ---
RECEIVED REPORT FROM AM NURSE. PT IN BED WITH FAMILY AT BEDSIDE. PT AAOX4, ABLE TO MAKE NEEDS KNOWN. ON TELE# 17 NSR, DENIES ANY CP/PRESSURE AT THIS TIME. PALPABLE PULSES TO BLE. NO EDEMA NOTED. BREATHING EVEN AND UNLABORED ON 5L OYMIZER. NO SOB NOTED. WHEEZE TO BLL. ABD SOFT AND ROUND, ACTIVE BOWEL SOUNDS X4 QUAD. DENIES N/V. VOIDS FREELY BSC. AMBULATORY WITH WALKER. NS RUNNING AT 100ML/HR TO RH. SITE FREE FROM REDNESS AND SWELLING. FALL PRECAUTIONS IN PLACE. BED AT LOWEST SETIING. SIDE RAILS X2 UP. CALL LIGHT WITHING REACH. WILL CONTINUE TO MONITOR.
[2018-09-24 20:50] VITALS: BP 110/60
--- NOTE | 2018-09-24 23:35 | NUR ---
PT REQUESTING TO HAVE CONTROL MED CHANGED TO 2100 BECAUSE THATS HER REGULAR SCHEDULE AT HOME. MED CURRENTLY SCHEDULE FOR 0900. DR WEAVER MADE AWARE AND SAID SHE WILL CHANGE THE ORDER.
--- NOTE | 2018-09-25 00:20 | NUR ---
PT AWAKE LAYING DOWN IN BED. BREATHING EVEN AND UNLABORED ON BIPAP. NO ACUTE DISTRESS NOTED. BED AT LOWEST SETTING. SIDE RAILS X2 UP. CALL LIGHT WITHING REACH. WILL CONTINUE TO MONITOR.
--- NOTE | 2018-09-25 05:41 | NUR ---
PT SLEPT WELL THROUGHOUT THE NIGHT. BREATHING EVEN AND UNLABORED ON BIPAP. NO ACUTE DISTRESS NOTED. ALL NEEDS ASSESSED AND ATTENDED TO. NS RUNNING TO RH AT 100ML/HR . SITE FREE FROM REDNESS AND SWELLING. BED AT LOWEST SETTING. SIDE RAILS X2 UP. CALL LIGHT WITHING REACH. WILL ENDORSE CARE TO AM NURSE.
[2018-09-25 06:02] VITALS: BP 104/52
--- NOTE | 2018-09-25 07:22 | NUR ---
PATIENT IS IN BED, BED IS TO THE LOWEST POSITION. PATIENT IS ON BIPAP AT THIS TIME. PATIENT IS BREATHING ADEQUATELY AND THERE ARE NO SIGNS OF RESPIRATORY DISTRESS. PATIENT HAS IV ACCESS NOTED TO . NS IS INFUSING AT 100 ML/HR AT THIS TIME. HEELS ARE OFF LOADED WITH PILLOWS, CALL LIGHT WITHIN REACH. WILL CONTINUE TO MONITOR.
[2018-09-25 07:35] LABS: CALCIUM 8.6 mg/dL (8.5-10.1); CARBON DIOXIDE 31.9 mmol/L (21-32); CHLORIDE SERUM 106 mmol/L (98-107); CREATININE SERUM 0.7 mg/dL (0.6-1.0); GFR1 > 60 mL/min; GLUCOSE SERUM 78 mg/dL (74-106); POTASSIUM SERUM 3.6 mmol/L (3.5-5.1); SODIUM SERUM 144 mmol/L (136-145)
[2018-09-25 07:45] VITALS: BP 100/59
[2018-09-25 07:48] LABS: BASOPHIL % 0.6 % (0-2); PLATELET COUNT 205 x10^3mcL (130-400)
[2018-09-25 07:57] LABS: RED CELL DISTRIBUTION WIDTH 16.9 % (11.5-14.5)
[2018-09-25 08:14] VITALS: BP 100/59
--- NOTE | 2018-09-25 08:49 | NUR ---
PATIENT REPOSITIONED AT THIS TIME PER COMFORT. WILL CONTINUE TO MONITOR.
[2018-09-25 11:46] VITALS: BP 102/60
--- NOTE | 2018-09-25 12:12 | NUR ---
PHYSICAL THERAPY DONE AT THIS TIME. PER THERAPIST, PATIENT DID WELL WITH NO APPARENT PROBLEMS. PATIENT SITTING IN CHAIR AT THIS TIME WITH NO DISTRESS NOTED. WILL CONTINUE TO MONITOR.
--- NOTE | 2018-09-25 13:20 | NUR ---
TELE MONITOR ASSESSED AT THIS TIME AND FUNCTIONING PROPERLY. TELE MONITOR: 16.
[2018-09-25] MEDS ORDERED: LEVOFLOXACIN500 M1 PO (14:04)
[2018-09-25 15:07] VITALS: BP 102/60
--- NOTE | 2018-09-25 15:18 | NUR ---
PER ARAVIND IN CASE MANAGEMENT, SHE STATES THAT [facility] IS OK WITH RECEIVING THE PATIENT BACK. BUT THEY WOULD NEED FOR THE PATIENTS MOTHER TO BE EDUCATED ON THE PATIENTS MEDICATIONS.
--- NOTE | 2018-09-25 15:19 | NUR ---
PATIENTS MOTHER AND BROTHER AT BEDSIDE. PER PATIENTS MOTHER, SHE DOES NOT KNOW A TIME THAT SHE WILL BE READY FOR DISCHARGE, BECAUSE SHE NEEDS TO FIGURE OUT TRANSPORTATION FOR THE PATIENT AT THIS TIME. MOTHER INFORMED TO LET NURSE KNOW OF TIME. WILL AWAIT.
--- NOTE | 2018-09-25 16:39 | NUR ---
PATIENT ASSISTED TO BEDSIDE COMMODE AT THIS TIME. NO APPARENT PROBLEM. PATIENT INSTRUCTED TO USE CALL LIGHT WHEN FINISHED. PATIENT INDICATED UNDERSTANDING. WILL CONTINUE TO MONITOR.
--- NOTE | 2018-09-25 16:41 | NUR ---
PER PATIENTS BROTHER BOSTON, HE STATES THAT THE CIGARETTE SELLER WILL BE HERE TO PICK THE PATIENT UP LATER THIS EVENING, AROUND 6-7 PM.
--- NOTE | 2018-09-25 16:56 | NUR ---
PHYSICAL THERAPY DAILY NOTES CO-SIGN All documentation done by the Registered Nurse Cardiac Telemetry for 09/25/18 has been reviewed. I agree with the documentation. Reviewed/Co-Signed by: Jeyson Draper PT Documentation Done by:JARROD STODDARD PTA
--- NOTE | 2018-09-25 17:43 | NUR ---
PATIENT IS IN THE CHAIR AT BEDSIDE RESTING COMFORTABLY AT THIS TIME. PATIENTS MOTHER IS AT BEDSIDE. PATIENT IS FREE FROM ANY SIGNS OF DISTRESS AND PATIENT STATES TO HAVE NO PAIN AT THIS TIME. PATIENT IS STABLE, WITH CALL LIGHT WITHIN REACH. WILL CONTINUE TO MONITOR.
[2018-09-25 18:08] VITALS: BP 102/53
--- NOTE | 2018-09-25 18:17 | NUR ---
PATIENTS DISCHARGE INSTRUCTIONS PROVIDED TO PATIENT, MOTHER AND BROTHER. PRESCRIPTION PROVIDED TO MOTHER WITH EXPLANATION. MOTHER GAVE AN INDICATION OF UNDERSTANDING. ALL QUESRTIONS AND CONCERNS REGARDING PATIENTS MEDICATION, ANSWERED AT THIS TIME. MOTHER GAVE INDICATION OF UNDERSTANDING. DISCHARGE FORMS SIGNED, AND PLACED IN PATIENTS CHART. ALL BELONGINGS, PRESCRIPTION AND DISCHARGE FORMS WITH MOTHER AT BEDSIDE. WILL AWAIT PATIENTS RIDE AT THIS TIME.
--- NOTE | 2018-09-25 18:46 | NUR ---
PATIENTS HOME MEDICATIONS GIVEN TO MOTHER AT THIS TIME. EYE DROPS AND CONTROL.
--- NOTE | 2018-09-25 19:05 | NUR ---
RECEIVED PT FROM PREVIOUS SHIFT NURSE. PT AOX4, DENIES CASH/DIZZINESS. ON TELE #16 READING NSR. DENIES CP/PRESSURE. DENIES SOB/DIFFICULTY BREATHING, ON 3L NC. IV TO R. HAND, INTACT AND PATENT. BED IN LOWEST POSITION. CALL LIGHT WITHIN REACH. WILL CONTINUE TO MONITOR.
--- NOTE | 2018-09-25 19:55 | NUR ---
IV DC'D FROM R. HAND, TIP INTACT. TELE MONITOR 16 RETURNED TO STATION. PT DISCHARGED ON HER OWN WHEEL CHAIR FROM HOME ACCOMPANIED BY MOTHER AND BROTHER. WRIST BAND REMOVED. IN NO ACUTE DISTRESS.
== END 2018-09-25 20:07 | disposition home or self-care (01) | DRG 193 ==
LOC: ED 07:32 → DU 09:26
PROVIDERS: Emergency Medicine; ADMIT Internal Medicine
DX: J18.9 Pneumonia, unspecified organism (principal); J96.01 Acute respiratory failure with hypoxia; J96.02 Acute respiratory failure with hypercapnia; E43 Unspecified severe protein-calorie malnutrition; J44.1 Chronic obstructive pulmonary disease with (acute) exacerbation; N39.0 Urinary tract infection, site not specified; Z68.43 Body mass index [BMI] 50.0-59.9, adult; Q89.3 Situs inversus; E11.9 Type 2 diabetes mellitus without complications; Q90.9 Down syndrome, unspecified; E03.9 Hypothyroidism, unspecified; E66.01 Morbid (severe) obesity due to excess calories; Z79.84 Long term (current) use of oral hypoglycemic drugs
CPT/HCPCS: 36600; 83880; 94150; 97116-GP; 97530-GP; G0378; J0132; J1956; J2930; J3490; J7030; J7620; Q0092

== ENCOUNTER 2019-03-04 00:38 | Inpatient (IN) | payer OTHER, MEDICAID ==
[~2019-03-04] VITALS: Ht 149.9 cm; Wt 117.0 kg
[~2019-03-04 00:38] MED LIST changes: +ACETADOTE; +LEVOFLOXACIN500 M1 PO
--- NOTE | 2019-03-04 01:00 | NUR ---
PT DIMITRI FROM [facility] FOR C/O SOB. PT USES BIPAP AT HOME AND HER O2 SATURATION WAS 65% WHEN MEDICS ARRIVED. PT WAS FOUND WITH LABORED BREATHING/TACHYPNEIC. PT WAS PLACED ON CPAP ENROUTE WITH 75% FIO2. ON ARRIVAL PT NOTED WITH LABORED BREATHING, TACHYPNEIC WITH AN O2 SATURATION OF 85%. PT PLACED ON BIPAP WITH SETTINGS: 12/6, RATE 16, FIO2 75%. PT'S O2 SATURATION INCREASED TO 92%. WHEEZES NOTED BILATERALLY. DR. LAMBERT AT BEDSIDE FOR MSE. PT CONNECTED TO FULL DIRECTOR QUALITY ASSURANCE
--- NOTE | 2019-03-04 01:10 | NUR ---
X-RAY TECH AT BEDSIDE
[2019-03-04 01:42] LABS: BASOPHIL % 0.7 % (0-2); PLATELET COUNT 215 x10^3mcL (130-400)
[2019-03-04 02:01] LABS: CALCIUM 8.3 mg/dL (8.5-10.1); CARBON DIOXIDE 30.3 mmol/L (21-32); CHLORIDE SERUM 103 mmol/L (98-107); CREATININE SERUM 0.9 mg/dL (0.6-1.0); GFR1 > 60 mL/min; GLUCOSE SERUM 109 mg/dL (74-106); POTASSIUM SERUM 3.9 mmol/L (3.5-5.1); SODIUM SERUM 140 mmol/L (136-145)
--- NOTE | 2019-03-04 02:01 | NUR ---
RT AT BEDSIDE FOR ABG BLOOD DRAW
[2019-03-04 02:02] LABS: RED CELL DISTRIBUTION WIDTH 14.6 % (11.5-14.5)
[2019-03-04 02:07] LABS: ALKALINE PHOSPHATASE 124 U/L (46-116); ALT/SGPT 43 U/L (14-59); AST/SGOT 21 U/L (15-37); BILIRUBIN TOTAL 0.3 mg/dL (0.20-1.00); TOTAL PROTEIN, SERUM 7.6 g/dL (6.4-8.2)
[2019-03-04 02:08] LABS: ALBUMIN 2.3 g/dL (3.4-5.0)
--- NOTE | 2019-03-04 02:15 | NUR ---
FIO2 TITRATED TO 50% BY RT AT BEDSIDE
[2019-03-04 02:20] LABS: CK-MB 0.7 ng/mL (0-3.6)
--- NOTE | 2019-03-04 02:40 | NUR ---
DR. LAMBERT MADE AWARE PT IS REQUESTING TO DRINK WATER. PER DR. LAMBERT, OK TO ADMINISTER AT THIS TIME
--- NOTE | 2019-03-04 03:06 | NUR ---
PT IS SLEEPING, EASILY AROUSABLE. BREATHING IS E/U ON BIPAP. NO RESP DISTRESS NOTED AT THIS TIME. WILL CONT TO MONITOR
--- NOTE | 2019-03-04 03:10 | NUR ---
FULL ASSESSMENT OF SKIN NOT ABLE TO BE PERFORMED AT THIS TIME D/T PT'S CRITICAL STATE AND DESATURATION OCCURING WHEN LAYING DOWN.
--- NOTE | 2019-03-04 03:26 | NUR ---
REPORT GIVEN TO PAULINE MICHELE FOR CONTINUITY OF CARE. ALL QUESTIONS/CONCERNS ADDRESSED AT THIS TIME
--- NOTE | 2019-03-04 03:48 | NUR ---
PT TRANSFERRED FROM ER VIA GURNEY ACCOMPANIED BY RN AND EMT. PT AWAKE AND ALERT ABLE TO FOLLOW COMMANDS AND VERBALIZE NEEDS. BIPAP 12/6. RATE 16, FIO2 60%. EENT FREE OF DISCHARGE. NO JVD NOTED, TRACHEA MIDLINE. PT IS BREATHING E/U. LUNG SOUNDS WHEEZING LARA. CHEST RISE EQUAL AND SYMMETRICAL. SECURITY AND COMPLIANCE PROJECT MANAGER IN PLACE SHOWING NSR HR 99, BP 100/45, MAP 61. PT DENIES CHEST PAIN. CHEST WALL STABLE. PULSES ARE PALPABLE X4 BUE MODERATE, BLE WEAK. CAP REFILL <3 SEC BUE,BLE. SKIN IS WARM AND DRY TO TOUCH. NO EDEMA NOTED. R HAND IV INTACT, PATENT, DSG CDI. NS INFUSING @ 75ML/HR. SOFT MECHANICAL DIET. LARGE ABD HERNIA PRESENT, ABD IS SOFT AND ROUNDED. BOWEL SOUNDS ACTIVE X4 QUADRANTS. PT IS INCONTINENT, VOIDS FREELY. SKIN INTACT. PT HAS HX OF DOWNS SYNDROME. TURN AND REPOSITIONED Q2H FOR PRESSURE RELIEF. ALL NEEDS MET AT THIS TIME, WILL CONTINUE TO MONITOR.
[2019-03-04 03:59] VITALS: BP 144/75
[2019-03-04 04:01] LABS: T3 TOTAL 0.98 ng/mL
[2019-03-04 04:07] LABS: CHOLESTEROL/HDL RATIO 3.1; MAGNESIUM 1.9 mg/dL (1.8-2.4); PHOSPHOROUS 3.6 mg/dL (2.5-4.9)
[2019-03-04 04:23] VITALS: BP 119/60
[2019-03-04 04:43] LABS: FREE T4 1.31 ng/dL (0.76-1.46); FREE THYROXINE INDEX 3.8 ug/dL (1.4-4.5)
[2019-03-04 06:16] LABS: PLATELET COUNT 187 x10^3mcL (130-400)
[2019-03-04 06:17] LABS: BASOPHIL % 0 % (0-2); RED CELL DISTRIBUTION WIDTH 15.2 % (11.5-14.5)
[2019-03-04 06:24] LABS: CALCIUM 7.9 mg/dL (8.5-10.1); CHLORIDE SERUM 105 mmol/L (98-107); CREATININE SERUM 0.8 mg/dL (0.6-1.0); GFR1 > 60 mL/min; GLUCOSE SERUM 146 mg/dL (74-106); POTASSIUM SERUM 4.2 mmol/L (3.5-5.1); SODIUM SERUM 140 mmol/L (136-145)
[2019-03-04 08:20] LABS: UA SPECIFIC GRAVITY >=1.030 (1.005-1.035); microscopic required? YES; urine erythrocyte NEGATIVE (NEGATIVE)
--- NOTE | 2019-03-04 10:03 | NUR ---
PATIENT ROUNDS WITH DR. STEPHENSON AND RESIDENTS. CHARGE NURSE AND PRIMARY NURSE AT BEDSIDE. UPDATES PROVIDED AND POC DISCUSSED. WILL CONTINUE TO MONITOR.
--- NOTE | 2019-03-04 19:15 | NUR ---
RECIEVED REPORT FROM RYNE IQBAL. NURSING UPDATES. POC DISCUSSED. SEE SHIFT ASSESSMENT FOR ASSESSMENT.
[2019-03-04 19:52] VITALS: BP 118/46
--- NOTE | 2019-03-04 22:34 | NUR ---
PT RESTING CALMING IN BED. NO ACUTE CHANGES. WILL CONT TO MONITOR.
[2019-03-05] VITALS (7 sets, daily range): BP systolic 95–139; BP diastolic 42–93
--- NOTE | 2019-03-05 | NUR ---
PT ATTEMPTED TO USE BIPAP BUT UNABLE TO PER AGITATION. RT NOTIFIED AND SWITCHED BACK TO HIFLOW. PT TOLERATING WELL FIO2 > 90%. WILL CONT TO MONITOR.
--- NOTE | 2019-03-05 00:09 | NUR ---
PLACED PATIENT ONTO BIPAP @4138 03/04 SETTINGS: 02/08 RATE 16 FIO2 60%. RECEIVED CALL FROM RN THAT PT WAS NOT TOLERATING BIPAP. REMOVED FROM BIPAP AND PLACED BACK ONTO HIGH FLOW 45L 70% @0005
--- NOTE | 2019-03-05 02:00 | NUR ---
PT RESTING CALMING IN BED. NO ACUTE CHANGES. WILL CONT TO MONITOR.
--- NOTE | 2019-03-05 04:00 | NUR ---
PT RESTING CALMING IN BED. NO ACUTE CHANGES. WILL CONT TO MONITOR.
--- NOTE | 2019-03-05 04:50 | NUR ---
PT C/O OF PAIN FOR ABD AREA. UNABLE TO DESCRIBE OR GIVE SCALE. ADM PRN TYLENOL FOR PAIN RELIEF. PT CLEANED AND LINENS CHANGED.
[2019-03-05 05:29] LABS: BASOPHIL % 1.6 % (0-2); PLATELET COUNT 177 x10^3mcL (130-400)
[2019-03-05 05:32] LABS: RED CELL DISTRIBUTION WIDTH 15.2 % (11.5-14.5)
[2019-03-05 05:41] LABS: CALCIUM 8.3 mg/dL (8.5-10.1); CARBON DIOXIDE 31.9 mmol/L (21-32); CHLORIDE SERUM 105 mmol/L (98-107); CREATININE SERUM 0.8 mg/dL (0.6-1.0); GFR1 > 60 mL/min; GLUCOSE SERUM 99 mg/dL (74-106); PHOSPHOROUS 2.6 mg/dL (2.5-4.9); POTASSIUM SERUM 4.4 mmol/L (3.5-5.1); SODIUM SERUM 140 mmol/L (136-145)
--- NOTE | 2019-03-05 05:59 | NUR ---
NO ACUTE CHANGES. WILL CONT TO MONITOR.
--- NOTE | 2019-03-05 07:30 | NUR ---
PATIENT AWAKE AND ORIENTED TO PERSON, PLACE AND DATE OF . PATIENT WITH HX OF DOWN SYNDROME. PATIENT HAS SLOW SPEECH AND IS ABLE TO MAKE NEEDS KNOWN. TELE # 6 READS NORMAL SINUS RHYTHMS. IVF NS AT 75ML/HR VIA IV SITE TO RIGHT WRIST. PATIENT IS ON HIGH FLOW AT 45LPM AND 72% FIO2. CALL LIGHT WITHIN REACH. SIDE RAILS UP X3. BED IS AT LOWEST POSITION AND ALARM IS ON.
--- NOTE | 2019-03-05 08:24 | NUR ---
ECHOCARDIOGRAM PENDING-HAVING BREAKFAST
--- NOTE | 2019-03-05 09:10 | NUR ---
ECHOCARDIOGRAM PENDING-STILL EATING BREAKFAST
--- NOTE | 2019-03-05 10:52 | NUR ---
HVAC PROJECT MANAGER IS AT BEDSIDE FOR ECHO.
--- NOTE | 2019-03-05 11:38 | NUR ---
LIMITED ECHOCARDIOGRAM DONE
--- NOTE | 2019-03-05 12:30 | NUR ---
DR. LOPEZ IS AT BEDSIDE SEEING THE PATIENT.
--- NOTE | 2019-03-05 12:46 | NUR ---
IV SITE AT RIGHT WRIST DISLODGED; THE TIP INTACT. NEW IV SITE REINSERTED TO RIGHT HAND WITH #22G.
--- NOTE | 2019-03-05 18:30 | NUR ---
PATIENT WAS GIVEN A BATH; LINEN AND GOWN CHANGED. THE FAMILY IS AT BEDSIDE WITH THE PATIENT.
--- NOTE | 2019-03-05 19:06 | NUR ---
REPORT GIVEN TO NAVI FLORES RN. CONCERNS WERE ADDRESSED.
--- NOTE | 2019-03-05 21:00 | NUR ---
PT NOTED OF FEELING WARM. COOLING MEASURES IN PLACE. WILL CONT TO MONITOR.
--- NOTE | 2019-03-05 21:29 | NUR ---
RECIEVED REPORT FROM RYNE MARTÍNEZ. NURSING UPDATES. POC DISCUSSED. SEE SHIFT ASSESSMENT FOR ASSESSMENT.
--- NOTE | 2019-03-05 22:25 | NUR ---
PT TAKEN OFF OF BIPAP AND PLACED ON HI-CLIFF 45L 70%. PER PT'S REQUEST. PT TOLERATING HI-CLIFF WELL. NO ACUTE RESP DISTRESS NOTED. WILL MONITOR
--- NOTE | 2019-03-05 22:30 | NUR ---
ATTEMPTED USE OF BIPAP. PT TOLERATED POORLY. AGITATED. ATTEMPTED CALMING MEASURES TO NO AVAIL. SWITCHED BACK TO HIFLOW 70% LPM 45. PT TOLERATED WELL. NO S/S OF DISTRESS.
--- NOTE | 2019-03-06 | NUR ---
NO ACUTE CHANGES. WILL CONT TO MONITOR.
--- NOTE | 2019-03-06 00:47 | NUR ---
PT W/ UNKNOWN AMOUNT VOIDED TO BED. LINENS CHANGED, PT CLEANED. NO ACUTE CHANGES. PT RESTING CALMLY IN BED. WILL CONT TO MONITOR. PT ADVISED TO ENCOURAGE USE OF BEDPAN AND TO ALERT STAFF IF NEEDING TO VOID.
--- NOTE | 2019-03-06 01:00 | NUR ---
NO ACUTE CHANGES. WILL CONT TO MONITOR.
--- NOTE | 2019-03-06 02:48 | NUR ---
PT DESATING 70-80%. CALMING MEASURES ATTEMPTED W/ NO AVAIL. NEW PROBE ATTACHED. NOTIFED RT DAMEON @ BEDSIDE W/ CALMING MEASURES AND REALIGNMENT OF HI FLOW. O2 SAT 92% PT TOLERATING WELL. WILL CONT TO MONITOR.
--- NOTE | 2019-03-06 03:00 | NUR ---
PT W/ UNKNOWN AMOUNT OF URINE VOIDED. SHEETS CHANGED ESTIMATED 50ML LIGHT YELLOW. PT TOLERATED WELL. REINFORCED W/ PT TO NOTIFY STAFF WHEN NEEDING TO USE THE RESTROOM.
[2019-03-06 03:12] VITALS: BP 91/60
--- NOTE | 2019-03-06 04:00 | NUR ---
NO ACUTE CHANGES. WILL CONT TO MONITOR.
--- NOTE | 2019-03-06 04:55 | NUR ---
NO ACUTE CHANGES. WILL CONT TO MONITOR.
[2019-03-06 05:51] LABS: CALCIUM 8.2 mg/dL (8.5-10.1); CARBON DIOXIDE 35.4 mmol/L (21-32); CHLORIDE SERUM 100 mmol/L (98-107); CREATININE SERUM 0.8 mg/dL (0.6-1.0); GFR1 > 60 mL/min; GLUCOSE SERUM 93 mg/dL (74-106); MAGNESIUM 1.8 mg/dL (1.8-2.4); PHOSPHOROUS 2.9 mg/dL (2.5-4.9); SODIUM SERUM 139 mmol/L (136-145)
[2019-03-06 06:02] LABS: BASOPHIL % 0.1 % (0-2); PLATELET COUNT 142 x10^3mcL (130-400)
[2019-03-06 06:11] LABS: RED CELL DISTRIBUTION WIDTH 15.7 % (11.5-14.5)
[2019-03-06 08:00] VITALS: BP 126/75
--- NOTE | 2019-03-06 08:00 | NUR ---
SITTING UP IN BED CALLING FOR MOMMY AND ASKING FOR HELP. DOES NOT EXPLAIN SPECIFIC NEEDS. ON HI FLOW 45L CONGESTED COUGH. ABLE TO SUCTION ON HER OWN. NS INFUSING 50 CC HOUR TO RT WRIST. ASISTED WITH BREAKFAST TRAY. ABLE TO FEED HERSELF. VERY LARGE ABD WITH ABD HERNIA. SKIN WARM TO TOUCH. RASH TO LEFT AND RIGHT INGUINAL. RECEIVES Z GUARD. CALL LIGHT WITHIN REACH.
--- NOTE | 2019-03-06 09:50 | NUR ---
GAVE HIBICLENS BATH AND CHANGED LINENS AND GOWN WITH ASSIST FROM LAWRENCE BIOINFORMATICS ANALYST.
--- NOTE | 2019-03-06 10:00 | NUR ---
PTS SISTER HANG HERE. PT REPOSITIONED. HANG SAYS PT CAN TAKE ORAL MEDS WITHOUT BEING CRUSHED. CRUSHED MEDS AND ADMMIN WITH PUDDING.
--- NOTE | 2019-03-06 10:28 | NUR ---
AGUSTIN PTS SISTER CALLED TO SAY LONNY PTS OTHER SISTER WILL BE COMING IN SHORTLY.
--- NOTE | 2019-03-06 11:00 | NUR ---
DR. STEPHENSON AND RESIDENT INTO SEE PT ALSO SPOKE WITH PTS SISTER HANG. RT IN ROOM.
[2019-03-06 12:00] VITALS: BP 127/67
--- NOTE | 2019-03-06 12:00 | NUR ---
ONGOING CALLS OUT TO HELP ME HELP ME. MOTHER AND BROTHER ARE AT BEDSIDE. CONTINUES ON RT PROTOCOL.NS INFUSING 50 CC HOUR. HIGH FLOW 45 L M. POOR APPETITE.
--- NOTE | 2019-03-06 13:08 | NUR ---
NEW HIBICLENS ORDER. PT HAS ALREADY RECEIVED HIBICLENS BATH X 2.
--- NOTE | 2019-03-06 13:31 | NUR ---
PT C/O PAIN TO HAND. MOTHER WANTED IV REMOVED AND RELOCATED. EXPLAINED TO PTS MOTHER THAT IS NOT EASY SHE MIGHT THINK. PT IS VERY HARD STICK. SHE IS ALSO COMPLAINING THAT PTS LEFT SHOULDER IS HURTING HER EVEN THOUGH PT IS USING HER LEFT ARM AND LYING ON HER LEFT SHOULDER. CHARGE NURSE SABA WENT INTO EVAL PTS IV. SHE REMOVED ARM BOARD AND WRAPPED WITH CURLEX INSTEAD OF DICK WRAP. PT APPEARS TO BE MORE COMFORTABLE WITH THAT AT THIS TIME.
--- NOTE | 2019-03-06 16:28 | NUR ---
PT RESTED APPROX 30 MIN ON BIPAP. THEN SHE BECAME VERY RESTLESS AND TOOK OFF BIPAP AND WOULD NOT LET ANY ONE REPLACE THE BIPAP UNTIL HIGH FLOW HOSE COULD BE REPLACED IT GOT HOLES IN IT. UNABLE TO GET BP PT REFUSED. RT TRYING TO REPLACE SATURATION LINE ON FINGER. PT VERY RESISTIVE TO CARE. MOTHER AT BEDSIDE.
--- NOTE | 2019-03-06 18:13 | NUR ---
PT SLEPT FOR AWHILE THIS AFTERNOON. CONTINUES WITH RT PROTOCOL. LEVAQUIN IV ABX. NS INFUSING 50 CC HOUR. BREATHING APPEARS MORE LABAORED THAN AT BEGINNING OF SHIFT. POOR APPETITE. HAS REFUSED BP SINCE 1400. LAST BP 1300 129/67. REMAINS TACHY LST HR 109. CONGESTED COUGH. REQUIRES MOD TO MAX ASSIST WITH ALL ADL'S. INCONTINENT OF URINE. CHANGED LINENS X 2 THIS SHIFT. FAMILY T BEDSIDE. CALL LIGHT WITHIN REACH
--- NOTE | 2019-03-06 18:48 | NUR ---
CHANGED BED LINENS AND GOWN AFTER LARGE VOID. VERY STRESSFUL TO PT. SHE RESISTS LINEN CHANGES. OBTAINED ORDER FOR NAQVI CATH. WILL ENDORSE TONIGHT SHIFT PT IS WORKED UP AT THIS TIME. RT HERE TO TREAT PT.
--- NOTE | 2019-03-06 18:59 | NUR ---
APPLIED FUNGAL CREAM TO LT AND RIGHT INGUINAL AREAS. PT RESISTIVE.
--- NOTE | 2019-03-06 19:30 | NUR ---
RECEIVED PT FROM SILKE MICHELE. PT ATTAHCED TO [employer] MANAGER AND CONTINUOUSE PULSE OXIMETRY. BED AT LOWEST SETTING, CALL LIGHT WITHIN REACH, HOB ELEVATED 90 DEGREES PER PT COMFORT. SEE [facility] [facility] ASSESSMENT FOR MORE DETAILS. PT VERY RESISTIVE TO NURSING CARE, UNABLE TO OBTAIN NIBP PATIENT IS EXCESSIVELY MOVING EACH EXTREMITY AND UNABLE TO KEEP STILL EVEN PTS MOTHER AT BEDISIDE TO HELP CONSOLE AND SOOTHE HER, PT REFUSING NIBP READING STATING SHE DOES NOT WANT IT, EDUCATION PROVIDED, DR. PAIGE MADE AWARE. WILL ATTMEPT LATER.
--- NOTE | 2019-03-06 23:15 | NUR ---
NAQVI CATHETER INSERTED BY CHARGE NURSE KIM MICHELE, WITH ASSISTANCE OF SUNI MICHELE AT BEDSIDE, USING STERILE TECHNIQUE. EDUCATION PROVIDED TO MOTHER AT BEDSIDE.
[2019-03-06 23:35] VITALS: BP 114/89
[2019-03-07] VITALS (7 sets, daily range): BP systolic 60–123; BP diastolic 26–57; Ht 149.9 cm; Wt 117.0 kg
--- NOTE | 2019-03-07 01:39 | NUR ---
RT TITRATED FIO2 TO 65%.
--- NOTE | 2019-03-07 02:55 | NUR ---
PT SATURATING 80-85% ON BIPAP. RT OLESYA PAGED AT THIS TIME.
--- NOTE | 2019-03-07 02:57 | NUR ---
RT TITRATED FIO2 TO 100%.
[2019-03-07 04:52] LABS: BASOPHIL % 0.2 % (0-2)
[2019-03-07 04:57] LABS: PLATELET COUNT 120 x10^3mcL (130-400); RED CELL DISTRIBUTION WIDTH 15.4 % (11.5-14.5)
[2019-03-07 05:05] LABS: CALCIUM 8.3 mg/dL (8.5-10.1); CARBON DIOXIDE 36.9 mmol/L (21-32); CHLORIDE SERUM 100 mmol/L (98-107); CREATININE SERUM 0.9 mg/dL (0.6-1.0); GFR1 > 60 mL/min; GLUCOSE SERUM 100 mg/dL (74-106); MAGNESIUM 2.1 mg/dL (1.8-2.4); POTASSIUM SERUM 4.4 mmol/L (3.5-5.1); SODIUM SERUM 138 mmol/L (136-145)
--- NOTE | 2019-03-07 05:58 | NUR ---
DR. HUMPHREY AT BEDSIDE FOR ASSESSMENT, UPDATES PROVIDED BY NURSING.
--- NOTE | 2019-03-07 06:05 | NUR ---
RT AT BEDSIDE FOR ABG LAB DRAW.
--- NOTE | 2019-03-07 06:09 | NUR ---
NORMAL SALINE GTT TITRATED OFF AT THIS TIME PER MD ORDER.
--- NOTE | 2019-03-07 06:15 | NUR ---
PT O2 PERCENT @ 88%, RT AT BEDSIDE AWARE. PT APPEARS MORE LETHARGIC AT THIS TIME BUT RESTLESS ATTEMPTING TO REMOVE BIPAP MACHINE. DR. HUMPHREY MADE AWARE OF PT'S ABG RESULTS. WILL AWAIT ORDERS.
--- NOTE | 2019-03-07 06:22 | NUR ---
Spoke to Denise Gonzales (sister) at this time to update her about pt status. Pt still on FI02 100% and restless and this time. ABG and CXR ordered by Dr. Bob noted and carried out. ABG results PH 7.21, PCO2 87.1, PO2 59.3, HCO 34.3. Denise (sister) made aware and needs to talk to her mom before intubation. Dr. Aguilar made aware at this time. Pt's mom and sister Denise on the phone at this time, discussing code status, awaiting decision at this time.Will continue to monitor.
--- NOTE | 2019-03-07 06:28 | NUR ---
RADIO PERSONALITY AT BEDSIDE FOR CXRAY
--- NOTE | 2019-03-07 07:07 | NUR ---
GAVE REPORT TO BLADE MICHELE. UPDATES PROVIDED, QUESTIONS ANSWERED, ENDORSED CARE.
--- NOTE | 2019-03-07 07:10 | NUR ---
REPORT RECEIVED FROM DENNISE MICHELE.
--- NOTE | 2019-03-07 07:20 | NUR ---
PT RECEIVED LYING IN BED WITH HOB 30 DEGREES, WHEELS LOCKED, CALL LIGHT WITHIN REACH, BED IN LOWEST POSITION. PT OBTUNDED, RESTLESS AT TIMES. BIPAP MASK SECURED TO FACE. FAMILY AT BEDSIDE. PT HAS IV TO RIGHT HAND, SALINE LOCKED. HR ON MONITOR LOW 100'S, RR 30'S, SPO2 80'S. CHEST EXPANSION IS SYMMETRIC, DYSPNEA NOTED.
--- NOTE | 2019-03-07 07:30 | NUR ---
DR. HUMPHREY CALLED AT THIS TIME STATING THAT SHE SPOKE WITH DR. LOPEZ AND THAT SHE RECOMMENDED INTUBATING THE PT DUE TO THE RECENT POOR ABG RESULTS. PRIMARY RN WENT TO THE ROOM TO ASK MOTHER OF PT IF SHE CONSENTED TO INTUBATION, AND SHE SAID NO AND ASKED FOR A DIFFERENT BIPAP MASK. THE RT CHANGED OUT THE BIPAP MASK. AWAITING ARRIVAL OF MORE FAMILY MEMBERS SO THEY CAN DISCUSS INTUBATION VS ALTERNATIVES. WILL CONTINUE TO MONITOR.
--- NOTE | 2019-03-07 07:50 | NUR ---
WITHHOLDING BREAKFAST MEAL TRAY FOR POSSIBLE INTUBATION IF FAMILY CONSENTS, PT'S ALOC, AND RISK FOR ASPIRATION.
--- NOTE | 2019-03-07 08:45 | NUR ---
PRIMARY RN SPOKE ON THE PHONE WITH CO-CONSERVATOR AUREA QUINTERO AND CONFIRMED IN PERSON WITH PT'S MOTHER THAT THE FAMILY WOULD LIKE TO CHANGE THE CODE STATUS OF THE PT TO DNI: NO ACLS MEDS, NO DEFIBRILLATION, NO COMPRESSIONS. DR. HUMPHREY AWARE.
--- NOTE | 2019-03-07 10:25 | NUR ---
CONTINUING TO WITHHOLD MEAL TRAY DUE TO DECREASED LOC.
--- NOTE | 2019-03-07 11:16 | NUR ---
DR. URIAS, DR. HUMPHREY, PRIMARY RN, POLITICAL GEOGRAPHER PRESENT FOR ROUNDS. UPDATES PROVIDED, QUESTIONS ANSWERED. PLAN OF CARE DISCUSSED AT THIS TIME REGARDING POSSIBLE BRONCHOSCOPY, CODE STATUS, AND PROGNOSIS. DR. LOPEZ WAS CONSULTED VIA PHONE AND TOLD THE FAMILY THAT IF THEY CONSENTED TO THE BRONCHOSCOPY, THE PT WOULD NEED TO BE INTUBATED IN ORDER TO SECURE AN AIRWAY AND REINFORCED THAT IF THE PT WAS INTUBATED, THERE WOULD BE LITTLE CHANCE THAT SHE COULD BE EXTUBATED D/T POOR LUNG FUNCTION. AT THIS TIME THE FAMILY HAS DECIDED TO STALL ON ALTERING THE CODE STATUS PAST VERBAL DNI UNTIL DR. LOPEZ COMES TO THE UNIT IN PERSON TO DISCUSS RISKS AND BENEFITS WITH THEM. WILL CONTINUE TO ASSESS AND MONITOR.
--- NOTE | 2019-03-07 11:50 | NUR ---
BUFFY WOUND CARE NURSE AT BEDSIDE, PLACED LINEN SHEET UNDER ABDOMINAL FOLDS AND RECOMMENDED USING ANTI-FUNGAL CREAM ON OPEN PART OF WOUND TO LEFT LOWER ABDOMEN.
--- NOTE | 2019-03-07 12:30 | NUR ---
DR. LOPEZ TALKED WITH FAMILY AT THIS TIME, EXPLAINED THAT THE PT'S PROGNOSIS IS VERY POOR. THEY VERBALIZED UNDERSTANDING AND SAID THAT THEY WOULD TALK MORE ABOUT MAKING A DECISION ONCE THE SISTER, AUREA QUINTERO (CO-CONSERVATOR), ARRIVES.
--- NOTE | 2019-03-07 13:07 | NUR ---
WOUND CARE EVALUATION NOTES: REASON FOR EVALUATION: INTERTRIGO AND LOW AYESHA SCORE SKIN ASSESSMENT DONE ON THIS 43 Y/O FEMALE PATIENT FROM [facility] TO [facility], WITH INITIAL DIAGNOSIS OF SOB. PAST MEDICAL HISTORY INCLUDE DOWN'S SYNDROME, OBESITY, HYPOTHYROIDISM, COPD, SLEEP APNEA AND IMMOTILE CILLIA SYNDROM. ALL ABOVE INFORMATION WAS OBTAINED FROM THE ADMISSION H&P. PATIENT IS AWAKE, OPENS EYES, EYES ABLE TO TRACK MOVEMENT, ON BIPAP. FC PATENT AND INTACT TO CLEAR YELLOW URINE IN MODERATE AMOUNT. SKIN WARM AND MOIST TO TOUCH WNL, BLE NO HAIR GROWTH AND +2 BILATERAL PEDAL PULSES. NEEDS MAX ASSISTANCE IN TURNING. PT. ABLE TO MOVE ARMS AND LEGS. INITIAL PLAN OF CARE AND PRESSURE PREVENTIVE MEASURES DISCUSSED WITH PRIMARY RN. INTEGUMENTARY: -INTERTRIGO TO LOWER ABDOMINAL FOLDS, RIGHT/AND LEFT GROINS. SKIN RED,MOIST, MULTIPLE PARTIAL THICKNESS SKIN LOSS TO LEFT LOWER ABDOMINAL FOLDS WITH THE LARGEST 1X1CM, SUPERFICIAL DEPTH, WOUND BEDS MOIST,RED NO ODOR. -INCONTINENCE ASSOCIATED DERMATITIS. TO SACRALCOCCYX AND PERINEUM SKIN RED AND INTACT. RECOMMENDATIONS: -CLEANSE LOWER ABDOMINAL FOLDS, RIGHT/AND LEFT GROINS WITH SOAP AND WATER, PAT DRY , APPLY ANTIFUNGAL CREAM BID AND PRN IF SOILING -OPTICFOAM TO SACRAL QD AND PRN IF SOILING PREVENTION -OFFLOAD BILATERAL HEELS BY PLACING PILLOWS UNDER CALVES AT ALL TIMES, UNLESS OTHERWISE CONTRAINDICATED -KEEP SKIN CLEAN AND DRY AT ALL TIMES. -PRESSURE REDISTRIBUTION SURFACE THERAPY. RECOMMENDATIONS DISCUSSED WITH PRIMARY RN. WILL FOLLOW UP PATIENT Q 7 -10 DAYS AND PRN. PLEASE CONTACT WOUND CARE NURSE FOR ANY QUESTIONS AND CHANGES IN SKIN CONDITION.
--- NOTE | 2019-03-07 13:24 | NUR ---
PT SPO2 MAINTAINING 80-82%, DR. HUMPHREY AWARE. NO NEW ORDERS, BIPAP FIO2 ALREADY 100%. ORAL SUCTIONING PROVIDED, NO IMPROVEMENT IN SPO2.
--- NOTE | 2019-03-07 15:43 | NUR ---
PT RESTLESS AT THIS TIME, FAMILY AT BEDSIDE.
--- NOTE | 2019-03-07 16:12 | NUR ---
INCREASED WORK OF BREATHING AND RESTLESSNESS NOTED. FAMILY OF PT AT BEDSIDE, HOLDING HER HAND AND SOOTHING HER.
--- NOTE | 2019-03-07 17:00 | NUR ---
PT SPO2 MID 70'S, PT HAS INCREASED WORK OF BREATHING. DR. HUMPHREY AWARE, COMING TO UNIT TO TALK WITH FAMILY.
--- NOTE | 2019-03-07 17:19 | NUR ---
PT SPO2 73%. BIPAP MASK READJUSTED TO ENSURE GOOD SEAL, SPO2 UNCHANGED. WILL CONTINUE TO MONITOR.
--- NOTE | 2019-03-07 17:22 | NUR ---
DR. HUMPHREY AT BEDSIDE. TALKED WITH FAMILY ABOUT MORPHINE TO HELP RELAX PT, FAMILY CONSENTED. AWAITING ORDER FOR MED, WILL GIVE WHEN ORDER IS ACTIVE.
--- NOTE | 2019-03-07 18:19 | NUR ---
RN FOUND RIGHT HAND PIV CATHETER OUT OF SKIN AT THIS TIME. NEW 22G PIV STARTED TO RIGHT WRIST. OLD 20G RH IV CATHETER TIP INTACT. NEW 22G IV FLUSHES EASILY, NO S/S INFILTRATION. WILL CONTINUE TO MONITOR.
--- NOTE | 2019-03-07 18:29 | NUR ---
BENEFIT OF MORPHINE DRIP EXPLAINED TO FAMILY BY PRIMARY RN, REQUESTED BY DR. HUMPHREY, WITH THE INTENT OF RELIEVING RESTLESSNESS AND ANXIETY CAUSED BY INEFFECTIVE BREATHING PATTERN/AIR HUNGER. CO-CONSERVATOR AUREA QUINTERO AND MOTHER OF PT LOBITO CONSENTED TO THE MORPHINE DRIP IN ORDER TO RELIEVE CURRENT RESTLESSNESS AND ANXIETY. DR. HUMPHREY AWARE OF FAMILY'S VERBAL AGREEMENT, STATED SHE WILL LET THE MEDICAL TEAM KNOW. WILL CONTINUE TO MONITOR.
--- NOTE | 2019-03-07 19:19 | NUR ---
REPORT GIVEN TO PAULINE MICHELE. ALL CARE ENDORSED AT THIS TIME.
--- NOTE | 2019-03-07 19:30 | NUR ---
PTS TEMP 102.[address] PAIGE CALLED AND MADE AWARE PT UNABLE TO SWALLOW, DR PAIGE STATES WILL ORDER TORADOL IVP. AGUSTIN AT BEDSIDE MADE AWARE AND AGREES TO GIVE TORADOL. FAMILY REQUESTING FOR MORPHINE GTT TO BE STARTED SOON. DR PAIGE MADE AWARE.
--- NOTE | 2019-03-07 19:30 | NUR ---
REC'D REPORT FROM BLADE MICHELE TO ASSUME CARE. PT IS ON BIPAP 12/6, FIO2 100%, RATE 16. PT IS NONVERBAL UNABLE TO FOLLOW COMMANDS. PT RESPONDS/FLEXION TO PAINFUL STIMULI. PUPILS ARE 3MM AND SLUGGISH LARA. EENT FREE OF DISCHARGE, NO JVD NOTED. SUPERVISOR CYTOLOGY IN PLACE SHOWING SINUS TACH, HR 117, BP 75/29, MAP 57. CHEST WALL STABLE. PULSES ARE MODERATE X4, CAP REFILL <3 SEC. SKIN IS WARM AND DRY TO TOUCH. PERIPHERAL IV TO R WRIST INTACT, PATENT, DSG CDI, SALINE LOCK. PT IS BEDBOUND W/ GEN WEAKNESS. SOFT MECHANICAL NECTAR THICK DIET, PT IS CURRENTLY UNABLE TO SWALLOW DUE TO HIGH RISK FOR ASPIRATION. NAQVI INTACT AND DRAINING VIA GRAVITY. STRAW COLOR URINE. LARGE ABD HERNIA NOTED, ABD IS SOFT, ACTIVE BOWEL SOUNDS X4 QUADRANTS. RASH AND REDNESS NOTED TO ABD FOLD, ABD, AND SACRUM. UNABLE TO FULLY ASSESS PSYCHOSOCIAL, FAMILY AT BEDSIDE. TURNED AND REPOSITIONED Q2H FOR PRESSURE RELIEF, ALL NEEDS MET AT THIS TIME WILL CONTINUE TO MONITOR.
--- NOTE | 2019-03-07 20:00 | NUR ---
ALL DUE ROUTINE MED PROVIDED, REASSESSED FOR CHEST PAIN, PT STATES FEELING RELIEF.
--- NOTE | 2019-03-07 20:17 | NUR ---
MORPHINE GTT STARTED AT THIS TIME AT 2 MG/HR.
--- NOTE | 2019-03-07 20:46 | NUR ---
IV STARTED TO R HAND G 22 WITH GOOD BLOOD RETURN, FLUSHED WITH 10CC NS WITHOUT ANY INFILTRATION NOTED.
--- NOTE | 2019-03-07 20:49 | NUR ---
RR 41, MORPHINE GTT TITRATED TO 4 MG/HR.
--- NOTE | 2019-03-07 21:15 | NUR ---
RESPIRATION RATE 36 MORPHINE GTT TITRATED UP TO 6MG/HR
[2019-03-08 03:45] VITALS: BP 40/15
--- NOTE | 2019-03-08 03:58 | NUR ---
BP 41/43 MAP 20. O2 SAT 56%, RR 13, HR 40. AGUSTIN AND LOBITO AT BEDSIDE MADE AWARE PT CLOSE TO PASSING. MORPHINE GTT INFUSING @ 6 MG/HR, PT APPEARS COMFORTABLE, NO S/SX OF FACIAL GRIMACING NOTED.
--- NOTE | 2019-03-08 03:59 | NUR ---
PT ASYSTOLE, NO PULSE, PUPILS FIXED, BP UNOBTAINABLE. DR APIGE CALLED AT THIS TIME. FAMILY AT BEDSIDE.
--- NOTE | 2019-03-08 04:08 | NUR ---
DR PAIGE AT BEDSIDE, TIME OF 8002.
--- NOTE | 2019-03-08 04:45 | NUR ---
[facility] BUS MONITOR CALLED AND SPOKE TO ADRIANNA, STATES BUS MONITOR WILL CALL BACK.
--- NOTE | 2019-03-08 04:48 | NUR ---
CALLED [employer] SPOKE TO GIFTY STATED WILL CALL BACK ONCE REGULATORY COMPLIANCE COORDINATOR RELEASES AND FAMILY DECIDES ON MORTUARY. CASE # [id number]
--- NOTE | 2019-03-08 05:33 | NUR ---
SPOKE TO CHUCHO AT [employer] MACHINE OPERATOR, [facility] MACHINE OPERATOR RELEASE THE BODY W/ CASE # [id number]
--- NOTE | 2019-03-08 05:37 | NUR ---
FAMILY AT BEDSIDE MADE AWARE, AWAITING FOR OTHER FAMILY MEMBERS TO ARRIVE.
--- NOTE | 2019-03-08 05:50 | NUR ---
POST MORTEM CARE PROVIDED.
--- NOTE | 2019-03-08 05:55 | NUR ---
PTS FAMILY PROVIDED MORTURARY: [facility] IN [place].
--- NOTE | 2019-03-08 06:23 | NUR ---
PT'S BODY PICKED UP BY [employer] AND TAKEN TO [facility]
== END 2019-03-08 06:23 | disposition expired | DRG 193 ==
LOC: ED 00:38 → IC 03:08
PROVIDERS: Emergency Medicine; Internal Medicine; ADMIT General Practice
DX: J18.9 Pneumonia, unspecified organism (principal); J96.21 Acute and chronic respiratory failure with hypoxia; E43 Unspecified severe protein-calorie malnutrition; J44.1 Chronic obstructive pulmonary disease with (acute) exacerbation; E66.2 Morbid (severe) obesity with alveolar hypoventilation; Z68.43 Body mass index [BMI] 50.0-59.9, adult; J98.09 Other diseases of bronchus, not elsewhere classified; K21.9 Gastro-esophageal reflux disease without esophagitis; E03.9 Hypothyroidism, unspecified; Q90.9 Down syndrome, unspecified; Z66 Do not resuscitate; Z99.81 Dependence on supplemental oxygen; Z87.01 Personal history of pneumonia (recurrent); Z79.51 Long term (current) use of inhaled steroids; Z71.3 Dietary counseling and surveillance
CPT/HCPCS: 36600; 83880; 84439; 87804; G0378; J0132; J1644; J1885; J1956; J2270; J2930; J3490; J7030; J7620; J7626; J7644; Q0092